=== PATIENT | male | born 1955 | race Caucasian/White ===

== ENCOUNTER 2021-06-05 08:00 | Outpatient (RCR) | payer MEDICARE, SELFPAY ==
[2021-05-22 08:22] VITALS: BP 159/75; PULSE 78; RESP 16; TEMP 36.4; BMI 25.5
--- NOTE | 2021-05-22 09:46 | PCM.WC.HP ---
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 He has been seen by his family doctor and has been placed on clindamycin no cultures were taken and he has been using Bactroban topically since January to keep it clean he said it did get some redness around the area and that frightened him. He is referred Here by his family doctor. Patient states 10 years ago was seen by Dr. 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 He was supposed to have surgery to remove it and they told him he had to have an EKG and he did not have time because of worse work schedule. 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 He has many varicosities and a ropey varicosities in the upper leg and fine broken varicosities in the lower leg. He also on the anterior white of his left leg has this discoloration and indentation almost looks like a scar but he states it is not. [facility] Home Medications amlodipine 10 mg PO DAILY 05/22/21 [History Last Taken Unknown] calcium polycarbophil [FiberCon] 1,250 mg PO BID 05/22/21 [History Last Taken Unknown] fluticasone propionate [Flonase] 1 spray INTRANASAL DAILY 05/22/21 [History Last Taken Unknown] levothyroxine 88 mcg PO DAILY 05/22/21 [History Last Taken Unknown] lovastatin 20 mg PO QPM 05/22/21 [History Last Taken Unknown] Allergy/AdvReac Type Severity Reaction Status Date / Time Penicillins [PCN] Allergy Hives Verified 05/22/21 08:42 SEASONAL Allergy Other Uncoded 05/22/21 08:42 Social History Smoking Status: Never smoker ROS Constitutional Constitutional: Reports systems reviewed and no addt'l complaints, except as documented Eyes Eyes: Reports systems reviewed and no addt'l complaints, except as documented ENT HEENT: Reports systems reviewed and no addt'l complaints, except as documented Cardiovascular Cardiovascular: Reports systems reviewed and no addt'l complaints, except as documented Respiratory/Chest Respiratory/Chest: Reports systems reviewed and no addt'l complaints, except as documented Gastrointestinal Gastrointestinal: Reports systems reviewed and no addt'l complaints, except as documented Genitourinary Genitourinary: Reports systems reviewed and no addt'l complaints, except as documented Musculoskeletal Musculoskeletal: Reports systems reviewed and no addt'l complaints, except as documented Integumentary Integumentary: Reports skin ulcer Neurologic Neurologic: Reports systems reviewed and no addt'l complaints, except as documented Psychiatric Psychiatric: Reports systems reviewed and no addt'l complaints, except as documented Endocrine Endocrinology: Reports systems reviewed and no addt'l complaints, except as documented Hematologic/Lymphatic Hematologic/Lymphatic: Reports systems reviewed and no addt'l complaints, except as documented Allergic/Immunologic Allergic/Immunologic: Reports systems reviewed and no addt'l complaints, except as documented Vital Signs Vital Signs Vital Signs: 05/22/21 08:22 Temperature 97.5 F L Temperature Source Temporal Pulse Rate 78 Respiratory Rate 16 Blood Pressure 159/75 H Blood Pressure Mean 103 Blood Pressure Source Monitor Blood Pressure Position Sitting Blood Pressure Location Left Arm Oxygen Delivery Method Room Air Weight Weight: 168 lb Body Mass Index (BMI) 25.5 Physical Exam Const oriented x3 General Appearance: cooperative Exam Limitations: no limitations Resp normal respiratory effort Effort and Inspection: able to speak in complete sentences Auscultation: clear to auscultation bilaterally Cardio regular rate and regular rhythm Palpation: normal PMI Rate: regular rate Rhythm: regular rhythm GI Auscultation: normoactive bowel sounds Palpation: soft and no hepatosplenomegaly Extremity normal to inspection General Extremity: normal exam except as noted Skin no rashes or lesions noted Skin Narrative: Left lateral ankle venous insufficiency he has a large hole that is getting bigger clean some slough denies any pain at this time. Neuro oriented x3 Psych Appearance: grossly normal Speech: normal speech Thought Content: normal thought content Judgement: judgement good Debridement Note Debridement Note Wound debrided: Left lateral lower ankle venous insufficiency Type of Debridement: Excisional debridement Anesthesia Used: 5% Lidocaine Gel Depth: in the subcutaneous layer Percentage of wound debrided: 100 Instrument Used: 5mm curette Tissue Removed: Slough and fibrin and devitalized tissue Severity: Fat Layer Exposed Amount of bleeding with debridement: Mild Bleeding Controlled with: Compression and gauze Patient tolerated procedure: Patient tolerated procedure well Post-Debridement Measurements and Additional Note: Post-Debridement Measurements/Treatment - Nurse 1 - General Ulcer Assessment Start: 05/22/21 08:17 Freq: Status: Active Protocol: BANDAR Activity Type Activity Date Activity User E-Sign Co-Sign Detail Recorded Client Recorded Date Recorded By Document 05/22/21 08:22 [facility] [id number] 05/22/21 08:37 [facility] 05/22/21 08:22 WC - Today's Visit Information Type of service Follow-up Visit (Physician/BATTERY CHARGER TESTER ) Arrival Mode Ambulatory Transfer Assistance None Patient Identification Verified (Name & Yes ) Patient Requires Transmission-Based No Precautions Height and Weight Height 5 ft 8 in Weight 168 lb Weight in Pounds 168.0 lbs Weight Measurement Method Estimated by Patient Body Mass Index (BMI) 25.5 BMI Classification Overweight BSA - [place] 1.90 Vital Signs Temperature (97.8 F-99.1 F) 97.5 F L Temperature Source Temporal Pulse Rate (60-100) 78 Pulse Location Monitor Respiratory Rate (12-18) 16 Respiratory rate source Observation Oxygen Delivery Method Room Air Blood Pressure (90/60-120/80) 159/75 H Blood Pressure Mean 103 Source Monitor Position Sitting Blood Pressure Location Left Arm History Since Last Visit- (Skip if this is Patient's initial visit) Left Footwear Regular Shoe Right Footwear Regular Shoe Lower Extremity Assessment/ Foot Assessment/ Toe Nail Assessment Right -Posterior Tibial Palpable No -Posterior Tibial Doppler Monophasic -Dorsalis Pedis Palpable Yes -Dorsalis Pedis Doppler Monophasic -Extremity Color Pale -Hair Growth on Legs Yes -Hair Growth on Toes Yes -Temperature of Extremity Warm -Other Deformity No -Prior Foot Ulcer No -Charcot Joint No -Prior Amputation No -Thick Yes -Discolored Yes -Deformed Yes -Improper Length & Hygeine Yes Left -Posterior Tibial Palpable No -Posterior Tibial Doppler Monophasic -Dorsalis Pedis Palpable Yes -Dorsalis Pedis Doppler Monophasic -Extremity Color Pale, Hyperpigmented -Hair Growth on Legs No -Hair Growth on Toes No -Temperature of Extremity Warm -Other Deformity No -Prior Foot Ulcer No -Charcot Joint No -Prior Amputation No -Thick Yes -Discolored Yes -Deformed No -Improper Length & Hygeine No Neuropathy Assessment Feet - Top Side and Bottom <Entered> (a) Communication Assessment Preferred language [place] Scallop Cutter Required No Able to Read Yes Able to Write Yes Communication Tools None Right Hearing Abillity Normal Left Hearing Abillity Normal Visual Assistive Devices Glasses Teaching Assessment Preferences Verbal,Written, Audio/Visual, Demonstration Barriers to Learning None Readiness To Learn Excellent Willingness to Engage in Self Management High Activies Readiness to Engage in Self Management High Activities Anxiety Level Calm Cooperation Cooperative Perception Coherent Interest in Health Problem Asks Questions Education Importance Acknowledges Need Does Patient Smoke tobacco or other No substances Smoking Status Never smoker Is Patient Diabetic No Functional Assessment Recent Decline in Ability to Perform Denies Any Declines Culture/Baptist/Staple Laster Cultural/Baptist Needs that may affect No Treatment Plan Teaching: Wound Center *Welcome to the Wound Center -Person Taught Patient -Teaching Method Discussion -Response to teaching Verbalize understanding Welcome to the Wound Care Center [place] (a) 1 - + WC - Nurse 1 - General Ulcer Measurement Start: 05/22/21 08:17 Freq: Status: Active Protocol: Activity Type Activity Date Activity User E-Sign Co-Sign Detail Recorded Client Recorded Date Recorded By Document 05/22/21 08:22 [facility] [id number] 05/22/21 08:37 [facility] 05/22/21 08:22 Wound Center Nurse 1 #1- L LATERAL ANKLE -Combined with other wound No -Current Size (cm) - Length 1 -Current Size (cm) - Width 0.7 -Current Size (cm) - Depth 0.4 -Total Square Cm 0.7 -Date of Last Picture (Recall this 05/22/21 field) -Photo Taken Yes -Epithelialization None Present -Tunneling No -Undermining/Tunneling No -Circular Undermining No -Exudate Amt Medium -Exudate Type Serosanguineous -Wound Margin Distinct, Outline Attached -Granulation Amt None Present (0 %) -Slough/Fibrin Yes -Necrosis Amt Large (67-100%) -Necrotic Tissue Type Adherent Slough -Texture (Casi-wound Skin Appearance) Assessed, Scarring -Moisture (Casi-wound Skin Appearance) Assessed -Color (Casi-wound Skin Appearance) Assessed -Temperature (Casi-wound Skin No Abnormality Appearance) (Pt Warm) -Tenderness on Palpation (Casi-wound No Skin Appearance) -Ulcer Cleansing Rinsed/ Irrigated with Saline -Foul Odor after Cleansing No -Anesthetic Used 5% Lidocaine Gel Lower Limb Edema Present Yes Right Calf (cm) 37.6 Right Ankle (cm) 22.5 Left Calf (cm) 39 Left Ankle (cm) 23.6 WC - Nurse 2 - General Ulcer CM Notes Start: 05/22/21 08:17 Freq: Status: Active Protocol: Activity Type Activity Date Activity User E-Sign Co-Sign Detail Recorded Client Recorded Date Recorded By Document 05/22/21 08:59 MW [id number] 05/22/21 09:04 MW 05/22/21 08:59 Wound Center Nurse 2 #1- L LATERAL ANKLE -Time 09:01 -Correct Patient Yes -Correct Side, Site, Position Yes -Correct Procedure Yes -Procedure Performed Yes -Type of Procedure Debridement -Clinical Debridement Subcutaneous -Tissue Removed Subcutaneous -Post Debridement (cm) - Length 1.0 -Post Debridement (cm) - Width 1.0 -Post Debridement (cm) - Depth 0.3 -Total Square (Post) (cm) 1.00 -Area of Debridement (cm) - Length 1.0 -Area of Debridement (cm) - Width 1.0 -Total Square (Area) (cm) 1.00 -Tunneling No -Undermining/Tunneling No -Circular Undermining No -Wound/Ulcer Outcome Not Healed -Ulcer Cleansing Rinsed/ Irrigated with Saline -Foul Odor after Cleansing No -Bioengineered Tissue No -Bleeding Controlled with Pressure -Offloading No -Treatment Response Procedure Tolerated Well -Debridement - Subq, 1st 20sq cm Yes Pain Scale: 0-10 Numeric Is Patient Pain Free? Yes WC - Nurse 3 - General Ulcer D/C NN Start: 05/22/21 08:17 Freq: Status: Active Protocol: Activity Type Activity Date Activity User E-Sign Co-Sign Detail Recorded Client Recorded Date Recorded By Document 05/22/21 09:11 ML [id number] 05/22/21 09:12 ML 05/22/21 09:11 Wound Care Nurse 3 #1- L LATERAL ANKLE -Ulcer Cleansing Rinsed/ Irrigated with Saline -Primary Dressing Applied Aquacel Extra -Other Dressing adaptic -Primary Dressing Covered/Secured with Dry Gauze,Dry Gauze & Roll Gauze,Secured with Tape -Aquacel Extra 1 Pain Scale: 0-10 Numeric Is Patient Pain Free? Yes WC - Visit Discharge Discharge Condition Stable Ambulatory Status Ambulatory Medication Reconcilliation completed & No provided to patient/care provider Clinical Summary of Care Provided Yes Assessment/Plan Assessment/Plan (1) Asymptomatic ruptured varicose vein of left lower extremity: CODE(S): I83.92 - Asymptomatic varicose veins of left lower extremity PLAN: Cultures obtained of the ulcer will call with results if positive (2) Venous insufficiency of left leg: CODE(S): I87.2 - Venous insufficiency (chronic) (peripheral) PLAN: Arterial brachial studies to be ordered with Doppler study for venous insufficiency (3) Nonhealing ulcer of left lower extremity: CODE(S): L97.929 - Non-pressure chronic ulcer of unspecified part of left lower leg with unspecified severity QUALIFIERS: Non-pressure ulcer stage: with fat layer exposed Qualified Code(s): L97.922 - Non-pressure chronic ulcer of unspecified part of left lower leg with fat layer exposed PLAN: Wash the left leg with antibacterial soap and apply Aquacel extra to wound base moistened cover with Adaptic gauze and tape Double layer Tubigrip to the left lower leg every day Follow-up in 1 week (4) Peripheral vascular disease of lower extremity with ulceration: CODE(S): I73.9 - Peripheral vascular disease, unspecified; L97.909 - Non-pressure chronic ulcer of unspecified part of unspecified lower leg with unspecified severity PLAN: We will apply for a skin sob to the ulcer
[2021-05-29 08:15] VITALS: BP 133/79; PULSE 75; RESP 20; TEMP 36.3; BMI 25.5
[2021-05-29 08:17] VITALS: BP 133/79; PULSE 75; RESP 18; TEMP 36.3; BMI 25.5
--- NOTE | 2021-05-29 09:52 | PCM.WC.PN ---
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 He has been seen by his family doctor and has been placed on clindamycin no cultures were taken and he has been using Bactroban topically since January to keep it clean he said it did get some redness around the area and that frightened him. He is referred Here by his family doctor. Patient states 10 years ago was seen by Dr. 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 He was supposed to have surgery to remove it and they told him he had to have an EKG and he did not have time because of worse work schedule. 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 He has many varicosities and a ropey varicosities in the upper leg and fine broken varicosities in the lower leg. He also on the anterior white of his left leg has this discoloration and indentation almost looks like a scar but he states it is not. Progress of Wound: Ulcer area is measuring smaller. Still looks punctuated has some slough. Positive for infection start him on Bactrim for his staph infection. Was approved for epi fix will apply next week only because of infection this week. Patient is to continue using the Aquacel extra Objective Data Objective Data Vital Signs: Vital Signs Temp Pulse Resp BP 97.4 F L 75 18 133/79 H 05/29/21 08:17 05/29/21 08:17 05/29/21 08:17 05/29/21 08:17 Oxygen Delivery Method Room Air Weight: 168 lb Body Mass Index (BMI) 25.5 Lab / Micro Data Micro: Microbiology 05/22/21 09:00 Wound Abcess - Ankle Gram Stain - Final 05/22/21 09:00 Wound Abcess - Ankle Wound Culture - Final Staphylococcus epidermidis 05/22/21 09:00 Wound Abcess - Ankle Anaerobic Culture - Final No growth in 5 days. Debridement Note Debridement Note Post-Debridement Measurements and Additional Note: Post-Debridement Measurements/Treatment WC - Nurse 1 - General Ulcer Assessment Start: 05/22/21 08:17 Freq: Status: Active Protocol: WC.LOWEXT Activity Type Activity Date Activity User E-Sign Co-Sign Detail Recorded Client Recorded Date Recorded By Document 05/22/21 08:22 [facility] [id number] 05/22/21 08:37 BM Document 05/29/21 08:15 DL [id number] 05/29/21 08:17 DL Document 05/29/21 08:17 DL [id number] 05/29/21 08:22 DL 05/22/21 05/29/21 05/29/21 08:22 08:15 08:17 WC - Today's Visit Information Type of service Follow-up Visit Follow-up Visit Follow-up Visit (Physician/NEIGHBORHOOD PLANNER (Physician/NEIGHBORHOOD PLANNER (Physician/NEIGHBORHOOD PLANNER ) ) ) Arrival Mode Ambulatory Ambulatory Ambulatory Transfer Assistance None None None Patient Identification Verified (Name & Yes Yes Yes ) Patient Requires Transmission-Based No No No Precautions Height and Weight Height 5 ft 8 in Weight 168 lb Weight in Pounds 168.0 lbs Weight Measurement Method Estimated by Patient Body Mass Index (BMI) 25.5 25.5 25.5 BMI Classification Overweight Overweight Overweight BSA - [place] 1.90 Vital Signs Temperature (97.8 F-99.1 F) 97.5 F L 97.3 F L 97.4 F L Temperature Source Temporal Temporal Temporal Pulse Rate (60-100) 78 75 75 Pulse Location Monitor Monitor Monitor Respiratory Rate (12-18) 16 20 H 18 Respiratory rate source Observation Observation Observation Oxygen Delivery Method Room Air Blood Pressure (90/60-120/80) 159/75 H 133/79 H 133/79 H Blood Pressure Mean (mm Hg) 103 97 97 Source Monitor Monitor Monitor Position Sitting Blood Pressure Location Left Arm Have you changed medications since your No No last visit? Any new allergies or adverse reactions No No Had a fall/change in ADL's that may No No increase risk of falls Signs or symptoms of abuse and/or No No neglect since last visit Have you been in the hospital since your No No last visit? Has dressing in place as prescribed Yes Yes Has compression in place as prescribed Yes No Has offloadiing in place as prescribed N/A Yes Experienced any changes in pain level or No No management History Since Last Visit- (Skip if this is Patient's initial visit) Left Footwear Regular Shoe Right Footwear Regular Shoe Pain Scale: 0-10 Numeric Is Patient Pain Free? Yes Yes Lower Extremity Assessment/ Foot Assessment/ Toe Nail Assessment Right -Posterior Tibial Palpable No -Posterior Tibial Doppler Monophasic -Dorsalis Pedis Palpable Yes -Dorsalis Pedis Doppler Monophasic -Extremity Color Pale -Hair Growth on Legs Yes -Hair Growth on Toes Yes -Temperature of Extremity Warm -Other Deformity No -Prior Foot Ulcer No -Charcot Joint No -Prior Amputation No -Thick Yes -Discolored Yes -Deformed Yes -Improper Length & Hygeine Yes Left -Posterior Tibial Palpable No -Posterior Tibial Doppler Monophasic -Dorsalis Pedis Palpable Yes -Dorsalis Pedis Doppler Monophasic -Extremity Color Pale, Hyperpigmented -Hair Growth on Legs No -Hair Growth on Toes No -Temperature of Extremity Warm -Other Deformity No -Prior Foot Ulcer No -Charcot Joint No -Prior Amputation No -Thick Yes -Discolored Yes -Deformed No -Improper Length & Hygeine No Neuropathy Assessment Feet - Top Side and Bottom <Entered> (a) Communication Assessment Preferred language [place] 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 Able to Read Yes Able to Write Yes Communication Tools None Right Hearing Abillity Normal Left Hearing Abillity Normal Visual Assistive Devices Glasses Teaching Assessment Preferences Verbal,Written, Audio/Visual, Demonstration Barriers to Learning None Readiness To Learn Excellent Willingness to Engage in Self Management High Activies Readiness to Engage in Self Management High Activities Anxiety Level Calm Cooperation Cooperative Perception Coherent Interest in Health Problem Asks Questions Education Importance Acknowledges Need Does Patient Smoke tobacco or other No substances Smoking Status Never smoker Is Patient Diabetic No Functional Assessment Recent Decline in Ability to Perform Denies Any Declines Culture/Mandaen/Transport Technician Cultural/Mandaen Needs that may affect No Treatment Plan Teaching: Wound Center *Welcome to the Wound Center -Person Taught Patient -Teaching Method Discussion -Response to teaching Verbalize understanding Welcome to the Wound Care Center Mexican (a) 1 - + WC - Nurse 1 - General Ulcer Measurement Start: 05/22/21 08:17 Freq: Status: Active Protocol: Activity Type Activity Date Activity User E-Sign Co-Sign Detail Recorded Client Recorded Date Recorded By Document 05/22/21 08:22 BMF [id number] 05/22/21 08:37 BMF Document 05/29/21 08:17 DL [id number] 05/29/21 08:22 DL Edit Result 05/29/21 08:17 DL (1) [id number] 05/29/21 08:24 DL (1) Left Calf (cm) => 38 Left Ankle (cm) => 22 05/22/21 05/29/21 08:22 08:17 Wound Center Nurse 1 #1- L LATERAL ANKLE -Combined with other wound No -Current Size (cm) - Length 1 0.9 -Current Size (cm) - Width 0.7 0.6 -Current Size (cm) - Depth 0.4 0.4 -Total Square Cm 0.7 0.54 -Date of Last Picture (Recall this 05/22/21 field) -Photo Taken Yes No -Epithelialization None Present -Tunneling No -Undermining/Tunneling No -Undermining/Tunneling Starts (O'clock 10 ) -Undermining/Tunneling Ends (O'clock) 1 -Maximum Distance (cm) 0.2 -Circular Undermining No -Exudate Amt Medium Medium -Exudate Type Serosanguineous Serosanguineous -Wound Margin Distinct, Distinct, Outline Outline Attached Attached -Granulation Amt None Present (0 None Present (0 %) %) -Slough/Fibrin Yes -Necrosis Amt Large (67-100%) Large (67-100%) -Necrotic Tissue Type Adherent Slough Adherent Slough -Structure Exposed N/A -Texture (Casi-wound Skin Appearance) Assessed, Localized Edema Scarring -Moisture (Casi-wound Skin Appearance) Assessed No Abnormality -Color (Casi-wound Skin Appearance) Assessed Erythema -Temperature (Casi-wound Skin No Abnormality No Abnormality Appearance) (Pt Warm) (Pt Warm) -Tenderness on Palpation (Casi-wound No No Skin Appearance) -Ulcer Cleansing Rinsed/ Soap and Water Irrigated with Saline -Foul Odor after Cleansing No -Anesthetic Used 5% Lidocaine 4% Lidocaine Gel Solution,5% Lidocaine Gel Lower Limb Edema Present Yes Right Calf (cm) 37.6 Right Ankle (cm) 22.5 Left Calf (cm) 39 38 Left Ankle (cm) 23.6 22 WC - Nurse 2 - General Ulcer CM Notes Start: 05/22/21 08:17 Freq: Status: Active Protocol: Activity Type Activity Date Activity User E-Sign Co-Sign Detail Recorded Client Recorded Date Recorded By Document 05/22/21 08:59 MW [id number] 05/22/21 09:04 MW Document 05/29/21 08:36 MW [id number] 05/29/21 08:37 MW 05/22/21 05/29/21 08:59 08:36 Wound Center Nurse 2 #1- L LATERAL ANKLE -Time 09:01 08:36 -Correct Patient Yes Yes -Correct Side, Site, Position Yes Yes -Correct Procedure Yes Yes -Procedure Performed Yes Yes -Type of Procedure Debridement Debridement -Clinical Debridement Subcutaneous Subcutaneous -Tissue Removed Subcutaneous Subcutaneous -Post Debridement (cm) - Length 1.0 1.0 -Post Debridement (cm) - Width 1.0 0.8 -Post Debridement (cm) - Depth 0.3 0.2 -Total Square (Post) (cm) 1.00 0.80 -Area of Debridement (cm) - Length 1.0 1.0 -Area of Debridement (cm) - Width 1.0 0.8 -Total Square (Area) (cm) 1.00 0.80 -Tunneling No No -Undermining/Tunneling No No -Circular Undermining No No -Wound/Ulcer Outcome Not Healed Not Healed -Ulcer Cleansing Rinsed/ Rinsed/ Irrigated with Irrigated with Saline Saline -Foul Odor after Cleansing No No -Bioengineered Tissue No No -Bleeding Controlled with Pressure Pressure -Offloading No No -Treatment Response Procedure Tolerated Well -Debridement - Subq, 1st 20sq cm Yes Yes Pain Scale: 0-10 Numeric Is Patient Pain Free? Yes Yes WC - Nurse 3 - General Ulcer D/C NN Start: 05/22/21 08:17 Freq: Status: Active Protocol: Activity Type Activity Date Activity User E-Sign Co-Sign Detail Recorded Client Recorded Date Recorded By Document 05/22/21 09:11 ML [id number] 05/22/21 09:12 ML Document 05/29/21 08:46 RB [id number] 05/29/21 08:47 RB 05/22/21 05/29/21 09:11 08:46 Wound Care Nurse 3 #1- L LATERAL ANKLE -Ulcer Cleansing Rinsed/ Irrigated with Saline -Primary Dressing Applied Aquacel Extra Aquacel Extra, NonAdherent Contact Layer -Other Dressing adaptic -Primary Dressing Covered/Secured with Dry Gauze,Dry Dry Gauze,Dry Gauze & Roll Gauze & Roll Gauze,Secured Gauze,Secured with Tape with Tape -Aquacel Extra 1 1 Left -Other double layer tubigrip Treatment Response Procedure Tolerated Well Pain Scale: 0-10 Numeric Is Patient Pain Free? Yes Yes WC - Visit Discharge Discharge Condition Stable Stable Ambulatory Status Ambulatory Ambulatory Transportation Private Auto Medication Reconcilliation completed & No No provided to patient/care provider Clinical Summary of Care Provided Yes Yes Assessment/Plan Assessment/Plan (1) Asymptomatic ruptured varicose vein of left lower extremity: CODE(S): I83.92 - Asymptomatic varicose veins of left lower extremity (2) Venous insufficiency of left leg: CODE(S): I87.2 - Venous insufficiency (chronic) (peripheral) PLAN: DR Childers vascular surgeon appointment September (3) Nonhealing ulcer of left lower extremity: CODE(S): L97.929 - Non-pressure chronic ulcer of unspecified part of left lower leg with unspecified severity QUALIFIERS: Non-pressure ulcer stage: with fat layer exposed Qualified Code(s): L97.922 - Non-pressure chronic ulcer of unspecified part of left lower leg with fat layer exposed PLAN: Wound is resolved patient will be discharged from the wound center follow-up as needed (4) Peripheral vascular disease of lower extremity with ulceration: CODE(S): I73.9 - Peripheral vascular disease, unspecified; L97.909 - Non-pressure chronic ulcer of unspecified part of unspecified lower leg with unspecified severity
--- NOTE | 2021-05-29 10:47 | PCM.WC.PN ---
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 He has been seen by his family doctor and has been placed on clindamycin no cultures were taken and he has been using Bactroban topically since January to keep it clean he said it did get some redness around the area and that frightened him. He is referred Here by his family doctor. Patient states 10 years ago was seen by Dr. 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 He was supposed to have surgery to remove it and they told him he had to have an EKG and he did not have time because of worse work schedule. 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 He has many varicosities and a ropey varicosities in the upper leg and fine broken varicosities in the lower leg. He also on the anterior white of his left leg has this discoloration and indentation almost looks like a scar but he states it is not. Progress of Wound: Ulcer area is measuring smaller. Still looks punctuated has some slough. Positive for infection start him on Bactrim for his staph infection. Was approved for epi fix will apply next week only because of infection this week. Patient is to continue using the Aquacel extra Subjective Subjective Patient appears pleased with results but still very impatient Objective Data Objective Data Starting developed new cells in the base of the wound and still on Bactrim and has some slough in the base we can hold off on the epi fix till next week. Vital Signs: Vital Signs Temp Pulse Resp BP 97.4 F L 75 18 133/79 H 05/29/21 08:17 05/29/21 08:17 05/29/21 08:17 05/29/21 08:17 Oxygen Delivery Method Room Air Weight: 168 lb Body Mass Index (BMI) 25.5 Lab / Micro Data Attestation: I reviewed the patient's lab results. Micro: Microbiology 05/22/21 09:00 Wound Abcess - Ankle Gram Stain - Final 05/22/21 09:00 Wound Abcess - Ankle Wound Culture - Final Staphylococcus epidermidis 05/22/21 09:00 Wound Abcess - Ankle Anaerobic Culture - Final No growth in 5 days. Physical Exam Const oriented x3 General Appearance: cooperative Exam Limitations: no limitations Resp normal respiratory effort Effort and Inspection: able to speak in complete sentences Auscultation: clear to auscultation bilaterally Cardio regular rate and regular rhythm Palpation: normal PMI Rate: regular rate Rhythm: regular rhythm GI Auscultation: normoactive bowel sounds Palpation: soft and no hepatosplenomegaly Extremity normal to inspection General Extremity: normal exam except as noted Skin no rashes or lesions noted Skin Narrative: Left lateral ankle venous insufficiency he has a large hole that is getting bigger clean some slough denies any pain at this time. Neuro oriented x3 Psych Appearance: grossly normal Speech: normal speech Thought Content: normal thought content Judgement: judgement good Debridement Note Debridement Note Wound debrided: Left lateral ankle peripheral vascular ulcer Type of Debridement: Excisional debridement Anesthesia Used: 5% Lidocaine Gel Depth: Down to and including healthy tissue Percentage of wound debrided: 100 Instrument Used: 3mm curette Tissue Removed: Slough and fibrin Severity: Fat Layer Exposed Amount of bleeding with debridement: Mild Bleeding Controlled with: Pressure and Compression and gauze Patient tolerated procedure: Patient tolerated procedure well Post-Debridement Measurements and Additional Note: Post-Debridement Measurements/Treatment - Nurse 1 - General Ulcer Assessment Start: 05/22/21 08:17 Freq: Status: Active Protocol: [email or web address] Activity Type Activity Date Activity User E-Sign Co-Sign Detail Recorded Client Recorded Date Recorded By Document 05/22/21 08:22 [facility] [id number] 05/22/21 08:37 [facility] Document 05/29/21 08:15 DL [id number] 05/29/21 08:17 DL Document 05/29/21 08:17 DL [id number] 05/29/21 08:22 DL 05/22/21 05/29/21 05/29/21 08:22 08:15 08:17 - Today's Visit Information Type of service Follow-up Visit Follow-up Visit Follow-up Visit (Physician/LINE TENDER (Physician/LINE TENDER (Physician/LINE TENDER ) ) ) Arrival Mode Ambulatory Ambulatory Ambulatory Transfer Assistance None None None Patient Identification Verified (Name & Yes Yes Yes ) Patient Requires Transmission-Based No No No Precautions Height and Weight Height 5 ft 8 in Weight 168 lb Weight in Pounds 168.0 lbs Weight Measurement Method Estimated by Patient Body Mass Index (BMI) 25.5 25.5 25.5 BMI Classification Overweight Overweight Overweight BSA - [place] 1.90 Vital Signs Temperature (97.8 F-99.1 F) 97.5 F L 97.3 F L 97.4 F L Temperature Source Temporal Temporal Temporal Pulse Rate (60-100) 78 75 75 Pulse Location Monitor Monitor Monitor Respiratory Rate (12-18) 16 20 H 18 Respiratory rate source Observation Observation Observation Oxygen Delivery Method Room Air Blood Pressure (90/60-120/80) 159/75 H 133/79 H 133/79 H Blood Pressure Mean (mm Hg) 103 97 97 Source Monitor Monitor Monitor Position Sitting Blood Pressure Location Left Arm Have you changed medications since your No No last visit? Any new allergies or adverse reactions No No Had a fall/change in ADL's that may No No increase risk of falls Signs or symptoms of abuse and/or No No neglect since last visit Have you been in the hospital since your No No last visit? Has dressing in place as prescribed Yes Yes Has compression in place as prescribed Yes No Has offloadiing in place as prescribed N/A Yes Experienced any changes in pain level or No No management History Since Last Visit- (Skip if this is Patient's initial visit) Left Footwear Regular Shoe Right Footwear Regular Shoe Pain Scale: 0-10 Numeric Is Patient Pain Free? Yes Yes Lower Extremity Assessment/ Foot Assessment/ Toe Nail Assessment Right -Posterior Tibial Palpable No -Posterior Tibial Doppler Monophasic -Dorsalis Pedis Palpable Yes -Dorsalis Pedis Doppler Monophasic -Extremity Color Pale -Hair Growth on Legs Yes -Hair Growth on Toes Yes -Temperature of Extremity Warm -Other Deformity No -Prior Foot Ulcer No -Charcot Joint No -Prior Amputation No -Thick Yes -Discolored Yes -Deformed Yes -Improper Length & Hygeine Yes Left -Posterior Tibial Palpable No -Posterior Tibial Doppler Monophasic -Dorsalis Pedis Palpable Yes -Dorsalis Pedis Doppler Monophasic -Extremity Color Pale, Hyperpigmented -Hair Growth on Legs No -Hair Growth on Toes No -Temperature of Extremity Warm -Other Deformity No -Prior Foot Ulcer No -Charcot Joint No -Prior Amputation No -Thick Yes -Discolored Yes -Deformed No -Improper Length & Hygeine No Neuropathy Assessment Feet - Top Side and Bottom <Entered> (a) Communication Assessment Preferred language [place]an Parquet Floor Layer'S Helper Required No Able to Read Yes Able to Write Yes Communication Tools None Right Hearing Abillity Normal Left Hearing Abillity Normal Visual Assistive Devices Glasses Teaching Assessment Preferences Verbal,Written, Audio/Visual, Demonstration Barriers to Learning None Readiness To Learn Excellent Willingness to Engage in Self Management High Activies Readiness to Engage in Self Management High Activities Anxiety Level Calm Cooperation Cooperative Perception Coherent Interest in Health Problem Asks Questions Education Importance Acknowledges Need Does Patient Smoke tobacco or other No substances Smoking Status Never smoker Is Patient Diabetic No Functional Assessment Recent Decline in Ability to Perform Denies Any Declines 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 Cultural/Yarsani Needs that may affect No Treatment Plan Teaching: Wound Center *Welcome to the Wound Center -Person Taught Patient -Teaching Method Discussion -Response to teaching Verbalize understanding Welcome to the Wound Care Center [place]an (a) 1 - + WC - Nurse 1 - General Ulcer Measurement Start: 05/22/21 08:17 Freq: Status: Active Protocol: Activity Type Activity Date Activity User E-Sign Co-Sign Detail Recorded Client Recorded Date Recorded By Document 05/22/21 08:22 [facility] [id number] 05/22/21 08:37 [facility] Document 05/29/21 08:17 DL [id number] 05/29/21 08:22 DL Edit Result 05/29/21 08:17 DL (1) [id number] 05/29/21 08:24 DL (1) Left Calf (cm) => 38 Left Ankle (cm) => 22 05/22/21 05/29/21 08:22 08:17 Wound Center Nurse 1 #1- L LATERAL ANKLE -Combined with other wound No -Current Size (cm) - Length 1 0.9 -Current Size (cm) - Width 0.7 0.6 -Current Size (cm) - Depth 0.4 0.4 -Total Square Cm 0.7 0.54 -Date of Last Picture (Recall this 05/22/21 field) -Photo Taken Yes No -Epithelialization None Present -Tunneling No -Undermining/Tunneling No -Undermining/Tunneling Starts (O'clock 10 ) -Undermining/Tunneling Ends (O'clock) 1 -Maximum Distance (cm) 0.2 -Circular Undermining No -Exudate Amt Medium Medium -Exudate Type Serosanguineous Serosanguineous -Wound Margin Distinct, Distinct, Outline Outline Attached Attached -Granulation Amt None Present (0 None Present (0 %) %) -Slough/Fibrin Yes -Necrosis Amt Large (67-100%) Large (67-100%) -Necrotic Tissue Type Adherent Slough Adherent Slough -Structure Exposed N/A -Texture (Casi-wound Skin Appearance) Assessed, Localized Edema Scarring -Moisture (Casi-wound Skin Appearance) Assessed No Abnormality -Color (Casi-wound Skin Appearance) Assessed Erythema -Temperature (Casi-wound Skin No Abnormality No Abnormality Appearance) (Pt Warm) (Pt Warm) -Tenderness on Palpation (Casi-wound No No Skin Appearance) -Ulcer Cleansing Rinsed/ Soap and Water Irrigated with Saline -Foul Odor after Cleansing No -Anesthetic Used 5% Lidocaine 4% Lidocaine Gel Solution,5% Lidocaine Gel Lower Limb Edema Present Yes Right Calf (cm) 37.6 Right Ankle (cm) 22.5 Left Calf (cm) 39 38 Left Ankle (cm) 23.6 22 WC - Nurse 2 - General Ulcer CM Notes Start: 05/22/21 08:17 Freq: Status: Active Protocol: Activity Type Activity Date Activity User E-Sign Co-Sign Detail Recorded Client Recorded Date Recorded By Document 05/22/21 08:59 MW [id number] 05/22/21 09:04 MW Document 05/29/21 08:36 MW [id number] 05/29/21 08:37 MW 05/22/21 05/29/21 08:59 08:36 Wound Center Nurse 2 #1- L LATERAL ANKLE -Time 09:01 08:36 -Correct Patient Yes Yes -Correct Side, Site, Position Yes Yes -Correct Procedure Yes Yes -Procedure Performed Yes Yes -Type of Procedure Debridement Debridement -Clinical Debridement Subcutaneous Subcutaneous -Tissue Removed Subcutaneous Subcutaneous -Post Debridement (cm) - Length 1.0 1.0 -Post Debridement (cm) - Width 1.0 0.8 -Post Debridement (cm) - Depth 0.3 0.2 -Total Square (Post) (cm) 1.00 0.80 -Area of Debridement (cm) - Length 1.0 1.0 -Area of Debridement (cm) - Width 1.0 0.8 -Total Square (Area) (cm) 1.00 0.80 -Tunneling No No -Undermining/Tunneling No No -Circular Undermining No No -Wound/Ulcer Outcome Not Healed Not Healed -Ulcer Cleansing Rinsed/ Rinsed/ Irrigated with Irrigated with Saline Saline -Foul Odor after Cleansing No No -Bioengineered Tissue No No -Bleeding Controlled with Pressure Pressure -Offloading No No -Treatment Response Procedure Tolerated Well -Debridement - Subq, 1st 20sq cm Yes Yes Pain Scale: 0-10 Numeric Is Patient Pain Free? Yes Yes - Nurse 3 - General Ulcer D/C NN Start: 05/22/21 08:17 Freq: Status: Active Protocol: Activity Type Activity Date Activity User E-Sign Co-Sign Detail Recorded Client Recorded Date Recorded By Document 05/22/21 09:11 ML [id number] 05/22/21 09:12 ML Document 05/29/21 08:46 RB [id number] 05/29/21 08:47 RB 05/22/21 05/29/21 09:11 08:46 Wound Care Nurse 3 #1- L LATERAL ANKLE -Ulcer Cleansing Rinsed/ Irrigated with Saline -Primary Dressing Applied Aquacel Extra Aquacel Extra, NonAdherent Contact Layer -Other Dressing adaptic -Primary Dressing Covered/Secured with Dry Gauze,Dry Dry Gauze,Dry Gauze & Roll Gauze & Roll Gauze,Secured Gauze,Secured with Tape with Tape -Aquacel Extra 1 1 Left -Other double layer tubigrip Treatment Response Procedure Tolerated Well Pain Scale: 0-10 Numeric Is Patient Pain Free? Yes Yes - Visit Discharge Discharge Condition Stable Stable Ambulatory Status Ambulatory Ambulatory Transportation Private Auto Medication Reconcilliation completed & No No provided to patient/care provider Clinical Summary of Care Provided Yes Yes Assessment/Plan Assessment/Plan (1) Asymptomatic ruptured varicose vein of left lower extremity: CODE(S): I83.92 - Asymptomatic varicose veins of left lower extremity PLAN: Cultures obtained of the ulcer staph growing in ulcer started on Bactrim DS 1 p.o. twice daily for 14 days (2) Venous insufficiency of left leg: CODE(S): I87.2 - Venous insufficiency (chronic) (peripheral) PLAN: Arterial brachial studies to be ordered with Doppler study for venous insufficiency still waiting to be scheduled (3) Nonhealing ulcer of left lower extremity: CODE(S): L97.929 - Non-pressure chronic ulcer of unspecified part of left lower leg with unspecified severity QUALIFIERS: Non-pressure ulcer stage: with fat layer exposed Qualified Code(s): L97.922 - Non-pressure chronic ulcer of unspecified part of left lower leg with fat layer exposed PLAN: Wash the left leg with antibacterial soap and apply Aquacel extra to wound base moistened cover with Adaptic gauze and tape Double layer Tubigrip to the left lower leg every day Follow-up in 1 week (4) Peripheral vascular disease of lower extremity with ulceration: CODE(S): I73.9 - Peripheral vascular disease, unspecified; L97.909 - Non-pressure chronic ulcer of unspecified part of unspecified lower leg with unspecified severity PLAN: Approved for skin substitution to the ulcer will wait till infection is cleared.
[2021-06-05 08:06] VITALS: BP 135/83; PULSE 82; RESP 16; BMI 25.5
--- NOTE | 2021-06-05 09:06 | PCM.WC.PN ---
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 He has been seen by his family doctor and has been placed on clindamycin no cultures were taken and he has been using Bactroban topically since January to keep it clean he said it did get some redness around the area and that frightened him. He is referred Here by his family doctor. Patient states 10 years ago was seen by Dr. 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 He was supposed to have surgery to remove it and they told him he had to have an EKG and he did not have time because of worse work schedule. 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 He has many varicosities and a ropey varicosities in the upper leg and fine broken varicosities in the lower leg. He also on the anterior white of his left leg has this discoloration and indentation almost looks like a scar but he states it is not. Progress of Wound: Ulcer area is measuring smaller. Still looks punctuated has some slough. Positive for infection start him on Bactrim for his staph infection. Was approved for epi fix will apply next week only because of infection this week. Patient is changed to promogran Patient did receive call from vascular but has not gotten his studies done. Will be off for a week so I suggested he get it done in the next 2 weeks. Subjective Subjective Patient has no complaints and denies any pain Objective Data Objective Data Small amount of new skin cell growth and base of wound still has a lot of fat layer showing. Will start on Promogran this week for the next 2 weeks and then start him on epi fix is to fill in. Patient to get the ultrasound and arterial brachial studies done as soon as he can. Vital Signs: Vital Signs Temp Pulse Resp BP 97.4 F L 82 16 135/83 H 05/29/21 08:17 06/05/21 08:06 06/05/21 08:06 06/05/21 08:06 Oxygen Delivery Method Room Air Weight: 168 lb Body Mass Index (BMI) 25.5 Lab / Micro Data Attestation: I reviewed the patient's lab results. Micro: Microbiology 05/22/21 09:00 Wound Abcess - Ankle Gram Stain - Final 05/22/21 09:00 Wound Abcess - Ankle Wound Culture - Final Staphylococcus epidermidis 05/22/21 09:00 Wound Abcess - Ankle Anaerobic Culture - Final No growth in 5 days. Physical Exam Const oriented x3 General Appearance: cooperative Exam Limitations: no limitations Resp normal respiratory effort Effort and Inspection: able to speak in complete sentences Auscultation: clear to auscultation bilaterally Cardio regular rate and regular rhythm Palpation: normal PMI Rate: regular rate Rhythm: regular rhythm GI Auscultation: normoactive bowel sounds Palpation: soft and no hepatosplenomegaly Extremity normal to inspection General Extremity: normal exam except as noted Skin no rashes or lesions noted Skin Narrative: Left lateral ankle venous insufficiency he has a large hole that is getting bigger clean some slough denies any pain at this time. Neuro oriented x3 Psych Appearance: grossly normal Speech: normal speech Thought Content: normal thought content Judgement: judgement good Debridement Note Debridement Note Wound debrided: Left lateral ankle ulcer Laterality: Left Type of Debridement: Excisional debridement Anesthesia Used: 5% Lidocaine Gel Depth: Down to and including healthy tissue Percentage of wound debrided: 100 Instrument Used: 3mm curette Tissue Removed: Fibrin Severity: Fat Layer Exposed Amount of bleeding with debridement: Mild Bleeding Controlled with: Pressure Post-Debridement Measurements and Additional Note: Post-Debridement Measurements/Treatment WC - Nurse 1 - General Ulcer Assessment Start: 05/22/21 08:17 Freq: Status: Active Protocol: BANDAR Activity Type Activity Date Activity User E-Sign Co-Sign Detail Recorded Client Recorded Date Recorded By Document 05/22/21 08:22 [facility] [id number] 05/22/21 08:37 BMF Document 05/29/21 08:15 DL [id number] 05/29/21 08:17 DL Document 05/29/21 08:17 DL [id number] 05/29/21 08:22 DL Document 06/05/21 08:06 JF [id number] 06/05/21 08:11 JF 12/15/21 12/22/21 12/22/21 08:22 08:15 08:17 WC - Today's Visit Information Type of service Follow-up Visit Follow-up Visit Follow-up Visit (Physician/VAUDEVILLE ACTOR (Physician/VAUDEVILLE ACTOR (Physician/VAUDEVILLE ACTOR ) ) ) Arrival Mode Ambulatory Ambulatory Ambulatory Transfer Assistance None None None Patient Identification Verified (Name & Yes Yes Yes ) Patient Requires Transmission-Based No No No Precautions Height and Weight Height 5 ft 8 in Weight 168 lb Weight in Pounds 168.0 lbs Weight Measurement Method Estimated by Patient Body Mass Index (BMI) 25.5 25.5 25.5 BMI Classification Overweight Overweight Overweight BSA - [place] 1.90 Vital Signs Temperature (97.8 F-99.1 F) 97.5 F L 97.3 F L 97.4 F L Temperature Source Temporal Temporal Temporal Pulse Rate (60-100) 78 75 75 Pulse Location Monitor Monitor Monitor Respiratory Rate (12-18) 16 20 H 18 Respiratory rate source Observation Observation Observation Oxygen Delivery Method Room Air Blood Pressure (90/60-120/80) 159/75 H 133/79 H 133/79 H Blood Pressure Mean (mm Hg) 103 97 97 Source Monitor Monitor Monitor Position Sitting Blood Pressure Location Left Arm Have you changed medications since your No No last visit? Any new allergies or adverse reactions No No Had a fall/change in ADL's that may No No increase risk of falls Signs or symptoms of abuse and/or No No neglect since last visit Have you been in the hospital since your No No last visit? Has dressing in place as prescribed Yes Yes Has compression in place as prescribed Yes No Has offloadiing in place as prescribed N/A Yes Experienced any changes in pain level or No No management History Since Last Visit- (Skip if this is Patient's initial visit) Left Footwear Regular Shoe Right Footwear Regular Shoe Pain Scale: 0-10 Numeric Is Patient Pain Free? Yes Yes Lower Extremity Assessment/ Foot Assessment/ Toe Nail Assessment Right -Posterior Tibial Palpable No -Posterior Tibial Doppler Monophasic -Dorsalis Pedis Palpable Yes -Dorsalis Pedis Doppler Monophasic -Extremity Color Pale -Hair Growth on Legs Yes -Hair Growth on Toes Yes -Temperature of Extremity Warm -Other Deformity No -Prior Foot Ulcer No -Charcot Joint No -Prior Amputation No -Thick Yes -Discolored Yes -Deformed Yes -Improper Length & Hygeine Yes Left -Posterior Tibial Palpable No -Posterior Tibial Doppler Monophasic -Dorsalis Pedis Palpable Yes -Dorsalis Pedis Doppler Monophasic -Extremity Color Pale, Hyperpigmented -Hair Growth on Legs No -Hair Growth on Toes No -Temperature of Extremity Warm -Other Deformity No -Prior Foot Ulcer No -Charcot Joint No -Prior Amputation No -Thick Yes -Discolored Yes -Deformed No -Improper Length & Hygeine No Neuropathy Assessment Feet - Top Side and Bottom <Entered> (a) Communication Assessment Preferred language Wolof Prevention Specialist Required No Able to Read Yes Able to Write Yes Communication Tools None Right Hearing Abillity Normal Left Hearing Abillity Normal Visual Assistive Devices Glasses Teaching Assessment Preferences Verbal,Written, Audio/Visual, Demonstration Barriers to Learning None Readiness To Learn Excellent Willingness to Engage in Self Management High Activies Readiness to Engage in Self Management High Activities Anxiety Level Calm Cooperation Cooperative Perception Coherent Interest in Health Problem Asks Questions Education Importance Acknowledges Need Does Patient Smoke tobacco or other No substances Smoking Status Never smoker Is Patient Diabetic No Functional Assessment Recent Decline in Ability to Perform Denies Any Declines Culture/Religion/Interactive Media Marketing Strategist Cultural/Religion Needs that may affect No Treatment Plan Teaching: Wound Center *Welcome to the Wound Center -Person Taught Patient -Teaching Method Discussion -Response to teaching Verbalize understanding Welcome to the Wound Care Center Wolof 06/05/21 08:06 WC - Today's Visit Information Type of service Follow-up Visit (Physician/VAUDEVILLE ACTOR ) Arrival Mode Ambulatory Transfer Assistance Patient Identification Verified (Name & No ) Patient Requires Transmission-Based No Precautions Height and Weight Height Weight Weight in Pounds Weight Measurement Method Body Mass Index (BMI) 25.5 BMI Classification Overweight [facility] [place] Vital Signs Temperature (97.8 F-99.1 F) Temperature Source Pulse Rate (60-100) 82 Pulse Location Monitor Respiratory Rate (12-18) 16 Respiratory rate source Observation Oxygen Delivery Method Blood Pressure (90/60-120/80) 135/83 H Blood Pressure Mean (mm Hg) 100 Source Monitor Position Sitting Blood Pressure Location Left Arm Have you changed medications since your No last visit? Any new allergies or adverse reactions No Had a fall/change in ADL's that may increase risk of falls Signs or symptoms of abuse and/or No neglect since last visit Have you been in the hospital since your No last visit? Has dressing in place as prescribed Yes Has compression in place as prescribed Yes Has offloadiing in place as prescribed N/A Experienced any changes in pain level or No management History Since Last Visit- (Skip if this is Patient's initial visit) Left Footwear Regular Shoe Right Footwear Regular Shoe Pain Scale: 0-10 Numeric Is Patient Pain Free? Yes Lower Extremity Assessment/ Foot Assessment/ Toe Nail Assessment Right -Posterior Tibial Palpable -Posterior Tibial Doppler -Dorsalis Pedis Palpable -Dorsalis Pedis Doppler -Extremity Color -Hair Growth on Legs -Hair Growth on Toes -Temperature of Extremity -Other Deformity -Prior Foot Ulcer -Charcot Joint -Prior Amputation -Thick -Discolored -Deformed -Improper Length & Hygeine Left -Posterior Tibial Palpable -Posterior Tibial Doppler -Dorsalis Pedis Palpable -Dorsalis Pedis Doppler -Extremity Color -Hair Growth on Legs -Hair Growth on Toes -Temperature of Extremity -Other Deformity -Prior Foot Ulcer -Charcot Joint -Prior Amputation -Thick -Discolored -Deformed -Improper Length & Hygeine Neuropathy Assessment Feet - Top Side and Bottom Communication Assessment Preferred high school foreign language teacher Required Able to Read Able to Write Communication Tools Right Hearing Abillity Left Hearing Abillity Visual Assistive Devices Teaching Assessment Preferences Barriers to Learning Readiness To Learn Willingness to Engage in Self Management Activies Readiness to Engage in Self Management Activities Anxiety Level Cooperation Perception Interest in Health Problem Education Importance Does Patient Smoke tobacco or other substances Smoking Status Is Patient Diabetic Functional Assessment Recent Decline in Ability to Perform Culture/Religion/Interactive Media Marketing Strategist Cultural/Religion Needs that may affect Treatment Plan Teaching: Wound Center *Welcome to the Wound Center -Person Taught -Teaching Method -Response to teaching Welcome to the Wound Care Center (a) 1 - + WC - Nurse 1 - General Ulcer Measurement Start: 05/22/21 08:17 Freq: Status: Active Protocol: Activity Type Activity Date Activity User E-Sign Co-Sign Detail Recorded Client Recorded Date Recorded By Document 05/22/21 08:22 [facility] [id number] 05/22/21 08:37 BMF Document 05/29/21 08:17 DL [id number] 05/29/21 08:22 DL Edit Result 05/29/21 08:17 DL (1) [id number] 05/29/21 08:24 DL Document 06/05/21 08:06 [id number] 06/05/21 08:11 JF (1) Left Calf (cm) => 38 Left Ankle (cm) => 22 05/22/21 05/29/21 06/05/21 08:22 08:17 08:06 Wound Center Nurse 1 #1- L LATERAL ANKLE -Combined with other wound No No -Current Size (cm) - Length 1 0.9 0.9 -Current Size (cm) - Width 0.7 0.6 0.9 -Current Size (cm) - Depth 0.4 0.4 0.5 -Total Square Cm 0.7 0.54 0.81 -Date of Last Picture (Recall this 05/22/21 field) -Photo Taken Yes No No -Epithelialization None Present Small 1-33% -Tunneling No No -Undermining/Tunneling No No -Undermining/Tunneling Starts (O'clock 10 ) -Undermining/Tunneling Ends (O'clock) 1 -Maximum Distance (cm) 0.2 -Circular Undermining No No -Exudate Amt Medium Medium Small -Exudate Type Serosanguineous Serosanguineous Serosanguineous -Wound Margin Distinct, Distinct, Flat & Intact Outline Outline Attached Attached -Granulation Amt None Present (0 None Present (0 Medium (34-66%) %) %) -Granulation Quality Red -Slough/Fibrin Yes Yes -Necrosis Amt Large (67-100%) Large (67-100%) Medium (34-66%) -Necrotic Tissue Type Adherent Slough Adherent Slough Adherent Slough -Structure Exposed N/A N/A -Texture (Casi-wound Skin Appearance) Assessed, Localized Edema Assessed, Scarring Localized Edema -Moisture (Casi-wound Skin Appearance) Assessed No Abnormality Assessed,Dry/ Scaly -Color (Casi-wound Skin Appearance) Assessed Erythema Assessed, Hemosiderin Staining -Temperature (Casi-wound Skin No Abnormality No Abnormality No Abnormality Appearance) (Pt Warm) (Pt Warm) (Pt Warm) -Tenderness on Palpation (Casi-wound No No No Skin Appearance) -Ulcer Cleansing Rinsed/ Soap and Water Not Cleansed Irrigated with Saline -Foul Odor after Cleansing No -Anesthetic Used 5% Lidocaine 4% Lidocaine 5% Lidocaine Gel Solution,5% Gel Lidocaine Gel Lower Limb Edema Present Yes Yes Right Calf (cm) 37.6 Right Ankle (cm) 22.5 Left Calf (cm) 39 38 38 Left Ankle (cm) 23.6 22 23 - Nurse 2 - General Ulcer CM Notes Start: 05/22/21 08:17 Freq: Status: Active Protocol: Activity Type Activity Date Activity User E-Sign Co-Sign Detail Recorded Client Recorded Date Recorded By Document 05/22/21 08:59 MW [id number] 05/22/21 09:04 MW Document 05/29/21 08:36 MW [id number] 05/29/21 08:37 MW Document 06/05/21 08:22 MW [id number] 06/05/21 08:23 MW 05/22/21 05/29/21 06/05/21 08:59 08:36 08:22 Wound Center Nurse 2 #1- L LATERAL ANKLE -Time 09:01 08:36 08:22 -Correct Patient Yes Yes Yes -Correct Side, Site, Position Yes Yes Yes -Correct Procedure Yes Yes Yes -Procedure Performed Yes Yes Yes -Type of Procedure Debridement Debridement Debridement -Clinical Debridement Subcutaneous Subcutaneous Subcutaneous -Tissue Removed Subcutaneous Subcutaneous Subcutaneous -Post Debridement (cm) - Length 1.0 1.0 1.0 -Post Debridement (cm) - Width 1.0 0.8 0.6 -Post Debridement (cm) - Depth 0.3 0.2 0.3 -Total Square (Post) (cm) 1.00 0.80 0.60 -Area of Debridement (cm) - Length 1.0 1.0 1.0 -Area of Debridement (cm) - Width 1.0 0.8 0.6 -Total Square (Area) (cm) 1.00 0.80 0.60 -Tunneling No No No -Undermining/Tunneling No No No -Circular Undermining No No No -Wound/Ulcer Outcome Not Healed Not Healed Not Healed -Ulcer Cleansing Rinsed/ Rinsed/ Rinsed/ Irrigated with Irrigated with Irrigated with Saline Saline Saline -Foul Odor after Cleansing No No No -Bioengineered Tissue No No No -Bleeding Controlled with Pressure Pressure Pressure -Offloading No No No -Treatment Response Procedure Procedure Tolerated Well Tolerated Well -Debridement - Subq, 1st 20sq cm Yes Yes Yes Pain Scale: 0-10 Numeric Is Patient Pain Free? Yes Yes Yes - Nurse 3 - General Ulcer D/C NN Start: 05/22/21 08:17 Freq: Status: Active Protocol: Activity Type Activity Date Activity User E-Sign Co-Sign Detail Recorded Client Recorded Date Recorded By Document 05/22/21 09:11 ML [id number] 05/22/21 09:12 ML Document 05/29/21 08:46 RB [id number] 05/29/21 08:47 RB Document 06/05/21 08:32 DL [id number] 06/05/21 08:35 DL 05/22/21 05/29/21 06/05/21 09:11 08:46 08:32 Wound Care Nurse 3 #1- L LATERAL ANKLE -Ulcer Cleansing Rinsed/ Rinsed/ Irrigated with Irrigated with Saline Saline -Foul Odor after Cleansing No -Primary Dressing Applied Aquacel Extra Aquacel Extra, NonAdherent NonAdherent Contact Layer, Contact Layer Promogran -Other Dressing adaptic -Primary Dressing Covered/Secured with Dry Gauze,Dry Dry Gauze,Dry Dry Gauze, Gauze & Roll Gauze & Roll Secured with Gauze,Secured Gauze,Secured Tape with Tape with Tape -Aquacel Extra 1 1 -Promogran 1 Left -Other double layer Tubigrip tubigrip Treatment Response Procedure Procedure Tolerated Well Tolerated Well Pain Scale: 0-10 Numeric Is Patient Pain Free? Yes Yes Yes WC - Visit Discharge Discharge Condition Stable Stable Stable Ambulatory Status Ambulatory Ambulatory Ambulatory Transportation Private Auto Private Auto Medication Reconcilliation completed & No No provided to patient/care provider Clinical Summary of Care Provided Yes Yes Assessment/Plan Assessment/Plan (1) Asymptomatic ruptured varicose vein of left lower extremity: CODE(S): I83.92 - Asymptomatic varicose veins of left lower extremity PLAN: Cultures obtained of the ulcer staph growing in ulcer finish Bactrim DS 1 p.o. twice daily for 14 days (2) Venous insufficiency of left leg: CODE(S): I87.2 - Venous insufficiency (chronic) (peripheral) PLAN: Arterial brachial studies to be ordered with Doppler study for venous insufficiency still waiting to be scheduled patient needs to call back and schedule (3) Nonhealing ulcer of left lower extremity: CODE(S): L97.929 - Non-pressure chronic ulcer of unspecified part of left lower leg with unspecified severity QUALIFIERS: Non-pressure ulcer stage: with fat layer exposed Qualified Code(s): L97.922 - Non-pressure chronic ulcer of unspecified part of left lower leg with fat layer exposed PLAN: Wash the left leg with antibacterial soap and apply Promogran to wound base moistened cover with Adaptic gauze and tape Double layer Tubigrip to the left lower leg every day Follow-up in 1 week (4) Peripheral vascular disease of lower extremity with ulceration: CODE(S): I73.9 - Peripheral vascular disease, unspecified; L97.909 - Non-pressure chronic ulcer of unspecified part of unspecified lower leg with unspecified severity PLAN: Approved for skin substitution to the ulcer will wait till infection is cleared.
== END 2021-06-07 23:59 ==
LOC: WC 08:00
PROVIDERS: PCP Family Medicine; Visit Provider Nurse Practitioner
DX: I87.2 Venous insufficiency (chronic) (peripheral) (principal); I83.92 Asymptomatic varicose veins of left lower extremity; L97.922 Non-pressure chronic ulcer of unspecified part of left lower leg with fat layer exposed; I73.9 Peripheral vascular disease, unspecified
CPT/HCPCS: 11042; 87070; 87075; 87077; 87186; 87205; 99203; G0463

== ENCOUNTER 2021-07-03 08:00 | Outpatient (RCR) | payer MEDICARE, SELFPAY ==
[2021-06-08 00:07] VITALS: BP 135/83; PULSE 82; RESP 16; TEMP 36.3; BMI 25.5
[2021-06-19 08:37] VITALS: BP 147/70; PULSE 73; TEMP 35.6; BMI 25.5
--- NOTE | 2021-06-19 09:57 | ART_ITS ---
Reason For Study: LLE ANKLE ULCER, BLE EDEMA, PAD Procedure A bilateral lower extremity continuous wave Doppler with analog waveform analysis,segmental pressures,and ankle brachial indexes without exercise. Left Segmental Pressures Left brachial= 134mmHg. Left posterior tibial artery = 160mmHg. Left dorsalis pedis artery = 152mmHg. The left posterior tibial artery waveforms are triphasic. The left dorsalis pedis waveforms are triphasic. Right Segmental Pressures Right brachial= 135mmHg. Right posterior tibial artery = 160mmHg. Right dorsalis pedis artery = 155mmHg. The right posterior tibial artery waveforms are triphasic. The right dorsalis pedis waveforms are triphasic. Indices The right resting ankle brachial index is 1.19. The right ankle brachial index by the posterior tibial artery is 1.19. The right ankle brachial index by the dorsalis pedis is 1.15. The left resting ankle brachial index is 1.19. The left ankle brachial index by the posterior tibial artery is 1.19. The left ankle brachial index by the dorsalis pedis is 1.13. VL/Lower Ext Art Exam w/o Exercis Interpretation Summary Triphasic Doppler waveforms are noted at ankle level bilaterally. Pulse-volume recordings appear satisfactory at all levels bilaterally. Resting ankle-brachial indices are norm al bilaterally. There is no evidence of significant arterial occlusive disease in the lower ext remities bilaterally. Ordering Physician: Marycarmen Stanton Referring Physician: Marycarmen Stanton Performed By: Radha Cruz RVT, RDMELISSA
--- NOTE | 2021-06-19 09:57 | VDLE_ITS ---
Reason For Study: LLE LATERAL ANKLE ULCER RIGHT LEFT CFV is compressible, spontaneous, phasic, CFV is compressible, spontaneous, phasic, competent and demonstrates normal competent, and demonstrates normal augmentation. augmentation. FV is compressible, spontaneous, phasic, FV is compressible, spontaneous, phasic, competent and demonstrates normal competent and demonstrates normal augmentation. augmentation. POP V is compressible, spontaneous, phasic, POP V is compressible, spontaneous, phasic, competent and demonstrates normal competent and demonstrates normal augmentation. augmentation. T/P Trunk is compressible. T/P Trunk is compressible. PTV is compressible. PTV is compressible. RT PerV is compressible. LT PerV is compressible. SFJ is competent and measures 0.65 x 0.81 cm. SFJ is INCOMPETENT and measures 0.91 x 1.49 GSV proximal thigh measures 0.80 x 0.58 cm. cm. GSV at knee measures 0.58 x 0.51 cm. GSV proximal thigh measures 0.87 x 1.05 cm. GSV above knee is INCOMPETENT for greater GSV at knee measures 0.89 x 0.84 cm. than 0.5 seconds. GSV INCOMPETENT throughout for greater than GSV below knee is competent. 0.5 seconds. SSV proximal calf is competent and measures SSV proximal calf is competent and measures 0.23 x 0.20 cm. 0.26 x 0.36 cm. Procedure This is a venous duplex using B-mode, color flow and spectral Doppler. Exam performed in department. The exam was diagnostic. Patient was scanned in reverse Trendelenburg position during reflux assessment. A preliminary report was called and/or faxed to Wound Center. VL/Venous Duplex US - Vinny Extrem Interpretation Summary Deep veins of the lower extremities are bilaterally patent and compressible seg mentally. There is no evidence of deep vein thrombosis on either side. Valvular competence appears in tact within the proximal deep venous systems bilaterally. The great saphenous veins appear bila terally patent and compressible segmentally. The right sapheno-femoral junction is competent . The left sapheno-femoral junction is incompetent . The right great saphenous vein appears incompetent ab ove the knee. The right great saphenous vein appears competent below the knee. The left great sap henous vein appears segmentally incompetent. Small saphenous veins are patent and competent bilater ally. Ordering Physician: Marycarmen Stanton Referring Physician: Dilip Muhammad Performed By: Radha Cruz, CONOR, RVT
--- NOTE | 2021-06-19 12:17 | PN.PCM_ITS ---
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 He has been seen by his family doctor and has been placed on clindamycin no cultures were taken and he has been using Bactroban topically since January to keep it clean he said it did get some redness around the area and that frightened him. He is referred Here by his family doctor. Patient states 10 years ago was seen by Dr. 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 He was supposed to have surgery to remove it and they told him he had to have an EKG and he did not have time because of worse work schedule. 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 He has many varicosities and a ropey varicosities in the upper leg and fine broken varicosities in the lower leg. He also on the anterior white of his left leg has this discoloration and indentation almost looks like a scar but he states it is not. Progress of Wound: The wound is still getting new skin growth in the base but still is rather deep. Area around the wound is normal color no sign of infection. Applied for skin subs and they were approved we will apply the first epi fix today. Subjective Subjective Patient complains of increased pain in the wound he is anxious to get this moving along he approves for the epi fix to be used. He also has finally scheduled himself I think later today for his venous study so we can move on with his legs. Objective Data Objective Data Wound base shows new growth and some slough did do morbid debridement came out well. Is very tender to debride. Epi fix #1 apply to the area and covered with wound veil and Steri-Strips with Aquacel extra over top to protect patient was instructed not to change and not to get wet. We will reevaluate in 1 week Vital Signs: Vital Signs Temp Pulse Resp BP 96.1 F L 73 16 147/70 H 06/19/21 08:37 06/19/21 08:37 06/08/21 00:07 06/19/21 08:37 Weight: 168 lb Body Mass Index (BMI) 25.5 Lab / Micro Data Attestation: I reviewed the patient's lab results. Physical Exam Const oriented x3 General Appearance: cooperative Exam Limitations: no limitations Resp normal respiratory effort Effort and Inspection: able to speak in complete sentences Auscultation: clear to auscultation bilaterally Cardio regular rate and regular rhythm Palpation: normal PMI Rate: regular rate Rhythm: regular rhythm GI Auscultation: normoactive bowel sounds Palpation: soft and no hepatosplenomegaly Extremity normal to inspection General Extremity: normal exam except as noted Skin no rashes or lesions noted Skin Narrative: Left lateral ankle venous insufficiency he has a large hole that is getting bigger clean some slough denies any pain at this time. Neuro oriented x3 Psych Appearance: grossly normal Speech: normal speech Thought Content: normal thought content Judgement: judgement good Debridement Note Debridement Note Wound debrided: Left lateral ankle Type of Debridement: Excisional debridement Anesthesia Used: 5% Lidocaine Gel Depth: Down to and including healthy tissue and in the subcutaneous layer Percentage of wound debrided: 100 Instrument Used: 3mm curette Tissue Removed: Fibrin and some slough Severity: Fat Layer Exposed Amount of bleeding with debridement: Mild Bleeding Controlled with: Compression and gauze Patient tolerated procedure: Patient tolerated procedure well Post-Debridement Measurements and Additional Note: Post-Debridement Measurements/Treatment - Nurse 1 - General Ulcer Assessment Start: 06/19/21 08:36 Freq: Status: Active Protocol: WC.LOWEXT Activity Type Activity Date Activity User E-Sign Co-Sign Detail Recorded Client Recorded Date Recorded By Document 06/19/21 08:37 [place] [id number] 06/19/21 08:41 LYNDSEY 06/19/21 08:37 - Today's Visit Information Type of service 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 Any new allergies or adverse reactions No Had a fall/change in ADL's that may No increase risk of falls Signs or symptoms of abuse and/or No neglect since last visit Have you been in the hospital since your No last visit? Has dressing in place as prescribed Yes Has compression in place as prescribed Yes Has offloadiing in place as prescribed N/A Experienced any changes in pain level or No management Left Footwear Regular Shoe Right Footwear Regular Shoe Pain Scale: 0-10 Numeric Is Patient Pain Free? Yes WC - Nurse 1 - General Ulcer Measurement Start: 06/19/21 08:36 Freq: Status: Active Protocol: Activity Type Activity Date Activity User E-Sign Co-Sign Detail Recorded Client Recorded Date Recorded By Document 06/19/21 08:37 LYNDSEY [id number] 06/19/21 08:41 LYNDSEY 06/19/21 08:37 Wound Center Nurse 1 #1- L LATERAL ANKLE -Combined with other wound No -Current Size (cm) - Length 0.6 -Current Size (cm) - Width 0.6 -Current Size (cm) - Depth 0.3 -Total Square Cm 0.36 -Photo Taken No -Epithelialization None Present -Tunneling No -Undermining/Tunneling No -Circular Undermining No -Exudate Amt Medium -Exudate Type Serosanguineous -Wound Margin Distinct, Outline Attached -Granulation Amt None Present (0 %) -Granulation Quality N/A -Slough/Fibrin No -Necrosis Amt None Present (0 %) -Structure Exposed N/A -Texture (Casi-wound Skin Appearance) No Abnormality, Assessed -Moisture (Casi-wound Skin Appearance) No Abnormality, Assessed -Color (Casi-wound Skin Appearance) No Abnormality, Assessed -Temperature (Casi-wound Skin No Abnormality Appearance) (Pt Warm) -Tenderness on Palpation (Casi-wound No Skin Appearance) -Ulcer Cleansing Rinsed/ Irrigated with Saline -Foul Odor after Cleansing No -Anesthetic Used 4% Lidocaine Solution Left Calf (cm) 35 Left Ankle (cm) 23 WC - Nurse 3 - General Ulcer D/C NN Start: 06/19/21 08:36 Freq: Status: Active Protocol: Activity Type Activity Date Activity User E-Sign Co-Sign Detail Recorded Client Recorded Date Recorded By Document 06/19/21 08:37 [place] [id number] 06/19/21 08:41 [place] 06/19/21 08:37 Vital Signs Temperature (97.8 F-99.1 F) 96.1 F L Temperature Source Temporal Pulse Rate (60-100) 73 Pulse Location Monitor Blood Pressure (90/60-120/80) 147/70 H Blood Pressure Mean (mm Hg) 95 Source Monitor Pain Scale: 0-10 Numeric Is Patient Pain Free? Yes Wound Care Nurse 3 #1- L LATERAL ANKLE -Ulcer Cleansing Rinsed/ Irrigated with Saline -Foul Odor after Cleansing No -Negative Pressure Wound Therapy N/A -Primary Dressing Applied Aquacel Extra -Primary Dressing Covered/Secured with Dry Gauze, Secured with Tape -Aquacel Extra 1 Left -Lotion applied to leg before No compression wrap -Tubular Bandage Double Layer -Size of Tubigrip Used Size E -Size E ($) 2 WC - Visit Discharge Discharge Condition Stable Ambulatory Status Ambulatory Transportation Private Auto Medication Reconcilliation completed & No provided to patient/care provider Clinical Summary of Care Provided Yes Assessment/Plan Assessment/Plan (1) Asymptomatic ruptured varicose vein of left lower extremity: CODE(S): I83.92 - Asymptomatic varicose veins of left lower extremity (2) Venous insufficiency of left leg: CODE(S): I87.2 - Venous insufficiency (chronic) (peripheral) PLAN: Arterial brachial studies to be ordered with Doppler study for venous insufficiency scheduled for today at 10 AM (3) Nonhealing ulcer of left lower extremity: CODE(S): L97.929 - Non-pressure chronic ulcer of unspecified part of left lower leg with unspecified severity QUALIFIERS: Non-pressure ulcer stage: with fat layer exposed Qualified Code(s): L97.922 - Non-pressure chronic ulcer of unspecified part of left lower leg with fat layer exposed PLAN: Epi fix #1 applied to base covered with wound veil and Steri-Strips Aquacel extra over top with gauze dressing Patient instructed not to get wet Follow-up in 1 week (4) Peripheral vascular disease of lower extremity with ulceration: CODE(S): I73.9 - Peripheral vascular disease, unspecified; L97.909 - Non- pressure chronic ulcer of unspecified part of unspecified lower leg with unspecified severity
[2021-06-26 09:02] VITALS: BP 142/80; TEMP 36.2; BMI 25.5
--- NOTE | 2021-06-26 09:37 | PCM.WC.PN ---
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 He has been seen by his family doctor and has been placed on clindamycin no cultures were taken and he has been using Bactroban topically since January to keep it clean he said it did get some redness around the area and that frightened him. He is referred Here by his family doctor. Patient states 10 years ago was seen by Dr. 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 He was supposed to have surgery to remove it and they told him he had to have an EKG and he did not have time because of worse work schedule. 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 He has many varicosities and a ropey varicosities in the upper leg and fine broken varicosities in the lower leg. He also on the anterior white of his left leg has this discoloration and indentation almost looks like a scar but he states it is not. Progress of Wound: The wound is still getting new skin growth in the base but still is rather deep. Area around the wound is getting erythematous and very tender .He c/o pain all day while on his feet. He had his first application of Epifix this past week and it is smaller Willl obtain cultures again. Subjective Subjective c/o pain and noted some swellingand redness. Objective Data Objective Data as stated above in the progress note some erythema and tenderness to palpate around the wound .Still painful to d?bride the wound. Will call patient if cultures are + . Still applied Epifix #2 because the measurements are smaller. Studies done of the legs and he does have areas that need to be addressed by [facility]. Vital Signs: Vital Signs Temp Pulse Resp BP 97.2 F L 73 16 142/80 H 06/26/21 09:02 06/19/21 08:37 06/08/21 00:07 06/26/21 09:02 Weight: 168 lb Body Mass Index (BMI) 25.5 Lab / Micro Data Attestation: I reviewed the patient's lab results. Physical Exam Const oriented x3 General Appearance: cooperative Exam Limitations: no limitations Resp normal respiratory effort Effort and Inspection: able to speak in complete sentences Auscultation: clear to auscultation bilaterally Cardio regular rate and regular rhythm Palpation: normal PMI Rate: regular rate Rhythm: regular rhythm GI Auscultation: normoactive bowel sounds Palpation: soft and no hepatosplenomegaly Extremity normal to inspection General Extremity: normal exam except as noted Skin no rashes or lesions noted Skin Narrative: Left lateral ankle venous insufficiency he has a large hole that is getting bigger clean some slough denies any pain at this time. Neuro oriented x3 Psych Appearance: grossly normal Speech: normal speech Thought Content: normal thought content Judgement: judgement good Debridement Note Debridement Note Wound debrided: L lateral ankle Type of Debridement: Excisional debridement Anesthesia Used: 5% Lidocaine Gel Depth: Down to and including healthy tissue Percentage of wound debrided: 100 Instrument Used: 3mm curette Severity: Fat Layer Exposed Amount of bleeding with debridement: Mild Bleeding Controlled with: Compression and gauze Patient tolerated procedure: Patient tolerated procedure well Post-Debridement Measurements and Additional Note: Post-Debridement Measurements/Treatment - Nurse 1 - General Ulcer Assessment Start: 06/19/21 08:36 Freq: Status: Active Protocol: BANDAR Activity Type Activity Date Activity User E-Sign Co-Sign Detail Recorded Client Recorded Date Recorded By Document 06/19/21 08:37 [place] [id number] 06/19/21 08:41 [place] Document 06/26/21 09:02 NC [id number] 06/26/21 09:05 [place] 06/19/21 06/26/21 08:37 09:02 - Today's Visit Information Type of service Follow-up Visit 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 ) Arrival Mode Ambulatory Ambulatory Patient Identification Verified (Name & Yes Yes ) Patient Requires Transmission-Based No No Precautions Safety Precautions NA NA Height and Weight Weight Measurement Method Standing Scale Body Mass Index (BMI) 25.5 25.5 BMI Classification Overweight Overweight Vital Signs Temperature (97.8 F-99.1 F) 96.1 F L 97.2 F L Temperature Source Temporal Temporal Pulse Rate (60-100) 73 Pulse Location Monitor Blood Pressure (90/60-120/80) 147/70 H 142/80 H Blood Pressure Mean (mm Hg) 95 100 Source Monitor Monitor History Since Last Visit- (Skip if this is Patient's initial visit) Have you changed medications since your No No last visit? Any new allergies or adverse reactions No No Had a fall/change in ADL's that may No No increase risk of falls Signs or symptoms of abuse and/or No No neglect since last visit Have you been in the hospital since your No No last visit? Has dressing in place as prescribed Yes Yes Has compression in place as prescribed Yes No Has offloadiing in place as prescribed N/A N/A Experienced any changes in pain level or No No management Left Footwear Regular Shoe Regular Shoe Right Footwear Regular Shoe Regular Shoe Pain Scale: 0-10 Numeric Is Patient Pain Free? Yes Yes WC - Nurse 1 - General Ulcer Measurement Start: 06/19/21 08:36 Freq: Status: Active Protocol: Activity Type Activity Date Activity User E-Sign Co-Sign Detail Recorded Client Recorded Date Recorded By Document 06/19/21 08:37 [place] [id number] 06/19/21 08:41 [place] Document 06/26/21 09:02 [place] [id number] 06/26/21 09:05 [place] 06/19/21 06/26/21 08:37 09:02 Wound Center Nurse 1 #1- L LATERAL ANKLE -Combined with other wound No No -Current Size (cm) - Length 0.6 0.5 -Current Size (cm) - Width 0.6 0.5 -Current Size (cm) - Depth 0.3 0.2 -Total Square Cm 0.36 0.25 -Photo Taken No No -Epithelialization None Present None Present -Tunneling No No -Undermining/Tunneling No No -Circular Undermining No No -Change in Wound Grade/Stage No -Exudate Amt Medium Small -Exudate Type Serosanguineous Serosanguineous -Wound Margin Distinct, Distinct, Outline Outline Attached Attached -Granulation Amt None Present (0 None Present (0 %) %) -Granulation Quality N/A N/A -Slough/Fibrin No Yes -Necrosis Amt None Present (0 Small (1-33%) %) -Necrotic Tissue Type Adherent Slough -Structure Exposed N/A N/A -Texture (Casi-wound Skin Appearance) No Abnormality, No Abnormality, Assessed Assessed -Moisture (Casi-wound Skin Appearance) No Abnormality, No Abnormality, Assessed Assessed -Color (Casi-wound Skin Appearance) No Abnormality, No Abnormality, Assessed Assessed -Temperature (Casi-wound Skin No Abnormality No Abnormality Appearance) (Pt Warm) (Pt Warm) -Tenderness on Palpation (Casi-wound No No Skin Appearance) -Ulcer Cleansing Rinsed/ Rinsed/ Irrigated with Irrigated with Saline Saline -Foul Odor after Cleansing No No -Anesthetic Used 4% Lidocaine 4% Lidocaine Solution Solution Lower Limb Edema Present No Left Calf (cm) 35 Left Ankle (cm) 23 WC - Nurse 2 - General Ulcer CM Notes Start: 06/19/21 08:36 Freq: Status: Active Protocol: Activity Type Activity Date Activity User E-Sign Co-Sign Detail Recorded Client Recorded Date Recorded By Document 06/19/21 08:25 MW [id number] 06/20/21 16:31 MW Document 06/26/21 08:23 MW [id number] 06/26/21 08:33 MW 06/19/21 06/26/21 08:25 08:23 Wound Center Nurse 2 #1- L LATERAL ANKLE -Time 08:25 08:31 -Correct Patient Yes Yes -Correct Side, Site, Position Yes Yes -Correct Procedure Yes Yes -Procedure Performed Yes Yes -Type of Procedure Debridement Debridement -Clinical Debridement Subcutaneous Subcutaneous -Tissue Removed Subcutaneous Subcutaneous -Post Debridement (cm) - Length 1.0 0.8 -Post Debridement (cm) - Width 0.6 0.4 -Post Debridement (cm) - Depth 0.4 0.4 -Total Square (Post) (cm) 0.60 0.32 -Area of Debridement (cm) - Length 1.0 0.8 -Area of Debridement (cm) - Width 0.6 0.4 -Total Square (Area) (cm) 0.60 0.32 -Tunneling No No -Undermining/Tunneling No No -Circular Undermining No No -Wound/Ulcer Outcome Not Healed Not Healed -Ulcer Cleansing Rinsed/ Rinsed/ Irrigated with Irrigated with Saline Saline -Foul Odor after Cleansing No No -Bioengineered Tissue Yes Yes -Type of Bioengineered Tissue Epifix 18mm Epifix 18mm Disc Disc -Expiration Date 02/06/26 02/06/26 -Product Lot Number [id number] -Percent Used 100 100 -Lot number of Saline Used [id number] -Bleeding Controlled with Pressure Pressure -Offloading No No -Treatment Response Procedure Procedure Tolerated Well Tolerated Well -Debridement - Subq, 1st 20sq cm No No -Apply Skin Sub - 1st 25 sq cm - Legs 1 1 -Epifix 18mm Disc 3 3 Pain Scale: 0-10 Numeric Is Patient Pain Free? Yes Yes WC - Nurse 3 - General Ulcer D/C NN Start: 06/19/21 08:36 Freq: Status: Active Protocol: Activity Type Activity Date Activity User E-Sign Co-Sign Detail Recorded Client Recorded Date Recorded By Document 06/19/21 08:37 LYNDSEY [id number] 06/19/21 08:41 [place] Document 06/26/21 09:02 LYNDSEY [id number] 06/26/21 09:05 [place] 06/19/21 06/26/21 08:37 09:02 Vital Signs Temperature (97.8 F-99.1 F) 96.1 F L 97.2 F L Temperature Source Temporal Temporal Pulse Rate (60-100) 73 Pulse Location Monitor Blood Pressure (90/60-120/80) 147/70 H 142/80 H Blood Pressure Mean (mm Hg) 95 100 Source Monitor Monitor Pain Scale: 0-10 Numeric Is Patient Pain Free? Yes Yes Wound Care Nurse 3 #1- L LATERAL ANKLE -Ulcer Cleansing Rinsed/ Not Cleansed Irrigated with Saline -Foul Odor after Cleansing No No -Negative Pressure Wound Therapy N/A N/A -Primary Dressing Applied Aquacel Extra Aquacel Extra -Primary Dressing Covered/Secured with Dry Gauze, Dry Gauze, Secured with Secured with Tape Tape -Aquacel Extra 1 1 Left -Lotion applied to leg before No No compression wrap -Tubular Bandage Double Layer -Size of Tubigrip Used Size E -Size E ($) 2 -Other ordered double tubi but has at home and doesn 't want another pair WC - Visit Discharge Discharge Condition Stable Stable Ambulatory Status Ambulatory Ambulatory Transportation Private Auto Private Auto Medication Reconcilliation completed & No No provided to patient/care provider Clinical Summary of Care Provided Yes Yes Assessment/Plan Assessment/Plan (1) Asymptomatic ruptured varicose vein of left lower extremity: CODE(S): I83.92 - Asymptomatic varicose veins of left lower extremity (2) Venous insufficiency of left leg: CODE(S): I87.2 - Venous insufficiency (chronic) (peripheral) PLAN: Referral to Dr Childers vascular (3) Nonhealing ulcer of left lower extremity: CODE(S): L97.929 - Non-pressure chronic ulcer of unspecified part of left lower leg with unspecified severity QUALIFIERS: Non-pressure ulcer stage: with fat layer exposed Qualified Code(s): L97.922 - Non-pressure chronic ulcer of unspecified part of left lower leg with fat layer exposed PLAN: Epi fix #2 applied to base covered with wound veil and Steri-Strips adaptic genteel,Aquacel extra over top with gauze dressing Patient instructed not to get wet Will call with the results of the cultlures Follow-up in 1 week (4) Peripheral vascular disease of lower extremity with ulceration: CODE(S): I73.9 - Peripheral vascular disease, unspecified; L97.909 - Non-pressure chronic ulcer of unspecified part of unspecified lower leg with unspecified severity
[2021-07-03 08:04] VITALS: BP 160/65; PULSE 80; TEMP 36.8; BMI 25.5
--- NOTE | 2021-07-03 08:47 | PCM.WC.PN ---
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 He has been seen by his family doctor and has been placed on clindamycin no cultures were taken and he has been using Bactroban topically since January to keep it clean he said it did get some redness around the area and that frightened him. He is referred Here by his family doctor. Patient states 10 years ago was seen by Dr. 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 He was supposed to have surgery to remove it and they told him he had to have an EKG and he did not have time because of worse work schedule. 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 He has many varicosities and a ropey varicosities in the upper leg and fine broken varicosities in the lower leg. He also on the anterior white of his left leg has this discoloration and indentation almost looks like a scar but he states it is not. Progress of Wound: LessThe wound is still getting new skin growth in the base but still is rather deep. Area around the wound is less erythematous and not as tender .cultures came back positive and he was started on antibiotic therapy. We applied epi fix #3. He does have an appoint with Dr. Childers next Thursday. Subjective Subjective Just started his antibiotic yesterday and he still having pain and itching. Has an 845 appointment next Thursday with Dr. Childers for evaluation and treatment Objective Data Objective Data As above written. Patient doing better it measurements do show slightly shallower. Patient will start his antibiotic and finish Vital Signs: Vital Signs Temp Pulse Resp BP 98.2 F 80 16 160/65 H 07/03/21 08:04 07/03/21 08:04 06/08/21 00:07 07/03/21 08:04 Weight: 168 lb Body Mass Index (BMI) 25.5 Lab / Micro Data Attestation: I reviewed the patient's lab results. Micro: Microbiology 06/26/21 08:25 Tissue Ulcer - Ankle Gram Stain - Final 06/26/21 08:25 Tissue Ulcer - Ankle Wound Culture - Final Enterococcus faecalis Corynebacterium amycolatum 06/26/21 08:25 Tissue Ulcer - Ankle Anaerobic Culture - Final No anaerobic bacteria isolated. Physical Exam Const oriented x3 General Appearance: cooperative Exam Limitations: no limitations Resp normal respiratory effort Effort and Inspection: able to speak in complete sentences Auscultation: clear to auscultation bilaterally Cardio regular rate and regular rhythm Palpation: normal PMI Rate: regular rate Rhythm: regular rhythm GI Auscultation: normoactive bowel sounds Palpation: soft and no hepatosplenomegaly Extremity normal to inspection General Extremity: normal exam except as noted Skin no rashes or lesions noted Skin Narrative: Left lateral ankle venous insufficiency he has a large hole that is getting bigger clean some slough denies any pain at this time. Neuro oriented x3 Psych Appearance: grossly normal Speech: normal speech Thought Content: normal thought content Judgement: judgement good Debridement Note Debridement Note Wound debrided: Left lateral ankle Type of Debridement: Excisional debridement Anesthesia Used: 5% Lidocaine Gel Depth: in the subcutaneous layer Percentage of wound debrided: 100 Instrument Used: 3mm curette Tissue Removed: Fibrin Severity: Fat Layer Exposed Amount of bleeding with debridement: None Bleeding Controlled with: Compression and gauze Patient tolerated procedure: Patient tolerated procedure well Post-Debridement Measurements and Additional Note: Post-Debridement Measurements/Treatment - Nurse 1 - General Ulcer Assessment Start: 06/19/21 08:36 Freq: Status: Active Protocol: ROQUE.LOWGERALDT Activity Type Activity Date Activity User E-Sign Co-Sign Detail Recorded Client Recorded Date Recorded By Document 06/19/21 08:37 PA [id number] 06/19/21 08:41 PA Document 06/26/21 09:02 PA [id number] 06/26/21 09:05 PA Document 07/03/21 08:04 PA [id number] 07/03/21 08:06 AK 06/19/21 06/26/21 07/03/21 08:37 09:02 08:04 - Today's Visit Information Type of service Follow-up Visit Initial Visit Follow-up Visit (Physician/HOME HEALTH AIDE (Physician/HOME HEALTH AIDE ) ) Arrival Mode Ambulatory Ambulatory Ambulatory Patient Identification Verified (Name & Yes Yes Yes ) Patient Requires Transmission-Based No No No Precautions Safety Precautions NA NA NA Height and Weight Weight Measurement Method Standing Scale Body Mass Index (BMI) 25.5 25.5 25.5 BMI Classification Overweight Overweight Overweight Vital Signs Temperature (97.8 F-99.1 F) 96.1 F L 97.2 F L 98.2 F Temperature Source Temporal Temporal Temporal Pulse Rate (60-100) 73 80 Pulse Location Monitor Monitor Blood Pressure (90/60-120/80) 147/70 H 142/80 H 160/65 H Blood Pressure Mean (mm Hg) 95 100 96 Source Monitor Monitor Monitor History Since Last Visit- (Skip if this is Patient's initial visit) Have you changed medications since your No No No last visit? Any new allergies or adverse reactions No No No Had a fall/change in ADL's that may No No No increase risk of falls Signs or symptoms of abuse and/or No No No neglect since last visit Have you been in the hospital since your No No No last visit? Has dressing in place as prescribed Yes Yes Yes Has compression in place as prescribed Yes No Yes Has offloadiing in place as prescribed N/A N/A No Experienced any changes in pain level or No No No management Left Footwear Regular Shoe Regular Shoe Regular Shoe Right Footwear Regular Shoe Regular Shoe Regular Shoe Pain Scale: 0-10 Numeric Is Patient Pain Free? Yes Yes Yes WC - Nurse 1 - General Ulcer Measurement Start: 06/19/21 08:36 Freq: Status: Active Protocol: Activity Type Activity Date Activity User E-Sign Co-Sign Detail Recorded Client Recorded Date Recorded By Document 06/19/21 08:37 PA [id number] 06/19/21 08:41 PA Document 06/26/21 09:02 PA [id number] 06/26/21 09:05 PA Document 07/03/21 08:04 PA [id number] 07/03/21 08:06 PA 06/19/21 06/26/21 07/03/21 08:37 09:02 08:04 Wound Center Nurse 1 #1- L LATERAL ANKLE -Combined with other wound No No No -Current Size (cm) - Length 0.6 0.5 0.7 -Current Size (cm) - Width 0.6 0.5 0.6 -Current Size (cm) - Depth 0.3 0.2 0.3 -Total Square Cm 0.36 0.25 0.42 -Photo Taken No No No -Epithelialization None Present None Present Medium 34-66% -Tunneling No No No -Undermining/Tunneling No No No -Circular Undermining No No No -Change in Wound Grade/Stage No No -Exudate Amt Medium Small Medium -Exudate Type Serosanguineous Serosanguineous Serosanguineous -Wound Margin Distinct, Distinct, Distinct, Outline Outline Outline Attached Attached Attached -Granulation Amt None Present (0 None Present (0 Medium (34-66%) %) %) -Granulation Quality N/A N/A Pale,[place],Red -Slough/Fibrin No Yes Yes -Necrosis Amt None Present (0 Small (1-33%) Medium (34-66%) %) -Necrotic Tissue Type Adherent Slough Adherent Slough -Structure Exposed N/A N/A N/A -Texture (Casi-wound Skin Appearance) No Abnormality, No Abnormality, No Abnormality, Assessed Assessed Assessed -Moisture (Casi-wound Skin Appearance) No Abnormality, No Abnormality, No Abnormality, Assessed Assessed Assessed -Color (Casi-wound Skin Appearance) No Abnormality, No Abnormality, No Abnormality, Assessed Assessed Assessed -Temperature (Casi-wound Skin No Abnormality No Abnormality No Abnormality Appearance) (Pt Warm) (Pt Warm) (Pt Warm) -Tenderness on Palpation (Casi-wound No No No Skin Appearance) -Ulcer Cleansing Rinsed/ Rinsed/ Rinsed/ Irrigated with Irrigated with Irrigated with Saline Saline Saline -Foul Odor after Cleansing No No No -Anesthetic Used 4% Lidocaine 4% Lidocaine 4% Lidocaine Solution Solution Solution Lower Limb Edema Present No Left Calf (cm) 35 35 Left Ankle (cm) 23 24 WC - Nurse 2 - General Ulcer CM Notes Start: 06/19/21 08:36 Freq: Status: Active Protocol: Activity Type Activity Date Activity User E-Sign Co-Sign Detail Recorded Client Recorded Date Recorded By Document 06/19/21 08:25 MW [id number] 06/20/21 16:31 MW Document 06/26/21 08:23 MW [id number] 06/26/21 08:33 MW Document 07/03/21 08:19 MW [id number] 07/03/21 08:24 MW 06/19/21 06/26/21 07/03/21 08:25 08:23 08:19 Wound Center Nurse 2 #1- L LATERAL ANKLE -Time 08:25 08:31 08:22 -Correct Patient Yes Yes Yes -Correct Side, Site, Position Yes Yes Yes -Correct Procedure Yes Yes Yes -Procedure Performed Yes Yes Yes -Type of Procedure Debridement Debridement Debridement -Clinical Debridement Subcutaneous Subcutaneous Subcutaneous -Tissue Removed Subcutaneous Subcutaneous Subcutaneous -Post Debridement (cm) - Length 1.0 0.8 0.8 -Post Debridement (cm) - Width 0.6 0.4 0.4 -Post Debridement (cm) - Depth 0.4 0.4 0.3 -Total Square (Post) (cm) 0.60 0.32 0.32 -Area of Debridement (cm) - Length 1.0 0.8 0.8 -Area of Debridement (cm) - Width 0.6 0.4 0.4 -Total Square (Area) (cm) 0.60 0.32 0.32 -Tunneling No No No -Undermining/Tunneling No No No -Circular Undermining No No No -Wound/Ulcer Outcome Not Healed Not Healed Not Healed -Ulcer Cleansing Rinsed/ Rinsed/ Rinsed/ Irrigated with Irrigated with Irrigated with Saline Saline Saline -Foul Odor after Cleansing No No No -Bioengineered Tissue Yes Yes Yes -Type of Bioengineered Tissue Epifix 18mm Epifix 18mm Epifix 18mm Disc Disc Disc -Expiration Date 02/06/26 02/06/26 03/08/26 -Product Lot Number [id number] -Percent Used 100 100 100 -Lot number of Saline Used [id number] -Bleeding Controlled with Pressure Pressure Pressure -Offloading No No No -Treatment Response Procedure Procedure Procedure Tolerated Well Tolerated Well Tolerated Well -Debridement - Subq, 1st 20sq cm No No No -Apply Skin Sub - 1st 25 sq cm - Legs 1 1 1 -Epifix 18mm Disc 3 3 3 Pain Scale: 0-10 Numeric Is Patient Pain Free? Yes Yes Yes WC - Nurse 3 - General Ulcer D/C NN Start: 06/19/21 08:36 Freq: Status: Active Protocol: Activity Type Activity Date Activity User E-Sign Co-Sign Detail Recorded Client Recorded Date Recorded By Document 06/19/21 08:37 LYNDSEY [id number] 06/19/21 08:41 AK Document 06/26/21 09:02 LYNDSEY [id number] 06/26/21 09:05 AK Document 07/03/21 08:33 LYNDSEY [id number] 07/03/21 08:34 AK 06/19/21 06/26/21 07/03/21 08:37 09:02 08:33 Vital Signs Temperature (97.8 F-99.1 F) 96.1 F L 97.2 F L Temperature Source Temporal Temporal Pulse Rate (60-100) 73 Pulse Location Monitor Blood Pressure (90/60-120/80) 147/70 H 142/80 H Blood Pressure Mean (mm Hg) 95 100 Source Monitor Monitor Pain Scale: 0-10 Numeric Is Patient Pain Free? Yes Yes Yes Wound Care Nurse 3 #1- L LATERAL ANKLE -Ulcer Cleansing Rinsed/ Not Cleansed Rinsed/ Irrigated with Irrigated with Saline Saline -Foul Odor after Cleansing No No No -Negative Pressure Wound Therapy N/A N/A N/A -Primary Dressing Applied Aquacel Extra Aquacel Extra Aquacel Extra -Primary Dressing Covered/Secured with Dry Gauze, Dry Gauze, Dry Gauze, Secured with Secured with Secured with Tape Tape Tape -Aquacel Extra 1 1 1 Left -Lotion applied to leg before No No compression wrap -Tubular Bandage Double Layer -Size of Tubigrip Used Size E -Size E ($) 2 -Other ordered double tubi but has at home and doesn 't want another pair WC - Visit Discharge Discharge Condition Stable Stable Stable Ambulatory Status Ambulatory Ambulatory Ambulatory Transportation Private Auto Private Auto Private Auto Medication Reconcilliation completed & No No No provided to patient/care provider Clinical Summary of Care Provided Yes Yes Yes Assessment/Plan Assessment/Plan (1) Asymptomatic ruptured varicose vein of left lower extremity: CODE(S): I83.92 - Asymptomatic varicose veins of left lower extremity (2) Venous insufficiency of left leg: CODE(S): I87.2 - Venous insufficiency (chronic) (peripheral) PLAN: DR Childers vascular surgeon appointment next Thursday 8:45 AM (3) Nonhealing ulcer of left lower extremity: CODE(S): L97.929 - Non-pressure chronic ulcer of unspecified part of left lower leg with unspecified severity QUALIFIERS: Non-pressure ulcer stage: with fat layer exposed Qualified Code(s): L97.922 - Non-pressure chronic ulcer of unspecified part of left lower leg with fat layer exposed PLAN: Epi fix #3 applied to base covered with wound veil and Steri-Strips adaptic genteel,Aquacel extra over top with gauze dressing Patient instructed not to get wet Continue antibiotic therapy Follow-up in 1 week (4) Peripheral vascular disease of lower extremity with ulceration: CODE(S): I73.9 - Peripheral vascular disease, unspecified; L97.909 - Non-pressure chronic ulcer of unspecified part of unspecified lower leg with unspecified severity
== END 2021-07-08 23:59 ==
LOC: WC 08:00
PROVIDERS: PCP Family Medicine; Referring Provider Nurse Practitioner; Visit Provider Nurse Practitioner
DX: I87.2 Venous insufficiency (chronic) (peripheral) (principal); L97.922 Non-pressure chronic ulcer of unspecified part of left lower leg with fat layer exposed; I83.92 Asymptomatic varicose veins of left lower extremity
CPT/HCPCS: 15271; 87070; 87075; 87077; 87186; 87205; 93923; 93970; Q4186

== ENCOUNTER 2021-07-31 08:00 | Outpatient (RCR) | payer MEDICARE, SELFPAY ==
[2021-07-09 00:14] VITALS: BP 160/65; PULSE 80; RESP 16; TEMP 36.8; BMI 25.5
[2021-07-10 08:04] VITALS: BP 126/64; PULSE 81; TEMP 36.1; BMI 25.5
--- NOTE | 2021-07-10 09:05 | PN.PCM_ITS ---
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 He has been seen by his family doctor and has been placed on clindamycin no cultures were taken and he has been using Bactroban topically since January to keep it clean he said it did get some redness around the area and that frightened him. He is referred Here by his family doctor. Patient states 10 years ago was seen by Dr. 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 He was supposed to have surgery to remove it and they told him he had to have an EKG and he did not have time because of worse work schedule. 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 He has many varicosities and a ropey varicosities in the upper leg and fine broken varicosities in the lower leg. He also on the anterior white of his left leg has this discoloration and indentation almost looks like a scar but he states it is not. Progress of Wound: Wound measurements have not changed much but it is improving with new cell growth in the base from the epi fix. Less pain and patient has an appointment with Dr. Childers right after our appointment today. Subjective Subjective Patient states he changed shoes and it was rubbing it was causing increase in pain Objective Data Objective Data A noted scab above the area from him wearing different shoes otherwise he said the epi fix dressing stayed on very long and very well this week. Patient is taking his antibiotic doxycycline for another week. From his positive cultures Wound is healing well it is filling in with new cell growth just slow but it is the undermining is disappearing. Vital Signs: Vital Signs Temp Pulse Resp BP 96.9 F L 81 16 126/64 H 07/10/21 08:04 07/10/21 08:04 07/09/21 00:14 07/10/21 08:04 Weight: 168 lb Body Mass Index (BMI) 25.5 Lab / Micro Data Attestation: I reviewed the patient's lab results. Physical Exam Const oriented x3 General Appearance: cooperative Exam Limitations: no limitations Resp normal respiratory effort Effort and Inspection: able to speak in complete sentences Auscultation: clear to auscultation bilaterally Cardio regular rate and regular rhythm Palpation: normal PMI Rate: regular rate Rhythm: regular rhythm GI Auscultation: normoactive bowel sounds Palpation: soft and no hepatosplenomegaly Extremity normal to inspection General Extremity: normal exam except as noted Skin no rashes or lesions noted Skin Narrative: Left lateral ankle venous insufficiency he has a large hole that is getting bigger clean some slough denies any pain at this time. Neuro oriented x3 Psych Appearance: grossly normal Speech: normal speech Thought Content: normal thought content Judgement: judgement good Debridement Note Debridement Note Wound debrided: Left lateral foot from peripheral vascular disease Laterality: Left Type of Debridement: Excisional debridement Anesthesia Used: 5% Lidocaine Gel Depth: Down to and including healthy tissue Percentage of wound debrided: 100 Instrument Used: 3mm curette Tissue Removed: Fibrin Severity: Fat Layer Exposed Amount of bleeding with debridement: None Bleeding Controlled with: Compression and gauze Patient tolerated procedure: Patient tolerated procedure well Post-Debridement Measurements and Additional Note: Post-Debridement Measurements/Treatment - Nurse 1 - General Ulcer Assessment Start: 07/10/21 08:04 Freq: Status: Active Protocol: ROQUE.YI Activity Type Activity Date Activity User E-Sign Co-Sign Detail Recorded Client Recorded Date Recorded By Document 07/10/21 08:04 LYNDSEY [id number] 07/10/21 08:06 LYNDSEY 07/10/21 08:04 WC - Today's Visit Information Type of service Follow-up Visit (Physician/LOAD DROPPER ) Arrival Mode Ambulatory Patient Identification Verified (Name & Yes ) Patient Requires Transmission-Based No Precautions Safety Precautions NA Height and Weight Body Mass Index (BMI) 25.5 BMI Classification Overweight Vital Signs Temperature (97.8 F-99.1 F) 96.9 F L Temperature Source Temporal Pulse Rate (60-100) 81 Pulse Location Monitor Blood Pressure (90/60-120/80) 126/64 H Blood Pressure Mean (mm Hg) 84 Source Monitor History Since Last Visit- (Skip if this is Patient's initial visit) Have you changed medications since your No last visit? Any new allergies or adverse reactions No Had a fall/change in ADL's that may No increase risk of falls Signs or symptoms of abuse and/or No neglect since last visit Have you been in the hospital since your No last visit? Has dressing in place as prescribed Yes Has compression in place as prescribed Yes Has offloadiing in place as prescribed No Experienced any changes in pain level or No management Left Footwear Regular Shoe Right Footwear Regular Shoe Pain Scale: 0-10 Numeric Is Patient Pain Free? Yes WC - Nurse 1 - General Ulcer Measurement Start: 07/10/21 08:04 Freq: Status: Active Protocol: Activity Type Activity Date Activity User E-Sign Co-Sign Detail Recorded Client Recorded Date Recorded By Document 07/10/21 08:04 AK [id number] 07/10/21 08:06 AK 07/10/21 08:04 Wound Center Nurse 1 #1- L LATERAL ANKLE -Combined with other wound No -Current Size (cm) - Length 0.5 -Current Size (cm) - Width 0.5 -Current Size (cm) - Depth 0.2 -Total Square Cm 0.25 -Photo Taken No -Tunneling No -Undermining/Tunneling No -Circular Undermining No -Exudate Amt Medium -Exudate Type Serosanguineous -Wound Margin Distinct, Outline Attached -Granulation Amt Small (1-33%) -Granulation Quality N/A -Slough/Fibrin Yes -Necrosis Amt Small (1-33%) -Necrotic Tissue Type Adherent Slough -Structure Exposed N/A -Texture (Casi-wound Skin Appearance) Assessed, Scarring,Rash -Moisture (Casi-wound Skin Appearance) No Abnormality, Assessed -Color (Casi-wound Skin Appearance) No Abnormality, Assessed -Temperature (Casi-wound Skin No Abnormality Appearance) (Pt Warm) -Tenderness on Palpation (Casi-wound Yes Skin Appearance) -Ulcer Cleansing Rinsed/ Irrigated with Saline -Foul Odor after Cleansing No -Anesthetic Used 4% Lidocaine Solution Lower Limb Edema Present No WC - Nurse 2 - General Ulcer CM Notes Start: 07/10/21 08:04 Freq: Status: Active Protocol: Activity Type Activity Date Activity User E-Sign Co-Sign Detail Recorded Client Recorded Date Recorded By Document 07/10/21 08:10 MW [id number] 07/10/21 08:16 MW 07/10/21 08:10 Wound Center Nurse 2 #1- L LATERAL ANKLE -Time 08:15 -Correct Patient Yes -Correct Side, Site, Position Yes -Correct Procedure Yes -Procedure Performed Yes -Type of Procedure Debridement -Clinical Debridement Subcutaneous -Tissue Removed Subcutaneous -Post Debridement (cm) - Length 0.9 -Post Debridement (cm) - Width 0.3 -Post Debridement (cm) - Depth 0.3 -Total Square (Post) (cm) 0.27 -Area of Debridement (cm) - Length 0.9 -Area of Debridement (cm) - Width 0.3 -Total Square (Area) (cm) 0.27 -Tunneling No -Undermining/Tunneling No -Circular Undermining No -Wound/Ulcer Outcome Not Healed -Ulcer Cleansing Rinsed/ Irrigated with Saline -Foul Odor after Cleansing No -Bioengineered Tissue Yes -Type of Bioengineered Tissue Epifix 18mm Disc -Expiration Date 03/08/26 -Product Lot Number [id number] -Percent Used 100 -Lot number of Saline Used [id number] -Bleeding Controlled with Pressure -Offloading No -Treatment Response Procedure Tolerated Well -Debridement - Subq, 1st 20sq cm No -Apply Skin Sub - 1st 25 sq cm - Legs 1 -Epifix 18mm Disc 3 Pain Scale: 0-10 Numeric Is Patient Pain Free? Yes WC - Nurse 3 - General Ulcer D/C NN Start: 07/10/21 08:04 Freq: Status: Active Protocol: Activity Type Activity Date Activity User E-Sign Co-Sign Detail Recorded Client Recorded Date Recorded By Document 07/10/21 08:37 SD [id number] 07/10/21 08:38 LYNDSEY 07/10/21 08:37 Wound Care Nurse 3 #1- L LATERAL ANKLE -Primary Dressing Applied Aquacel Extra -Primary Dressing Covered/Secured with Dry Gauze, Secured with Tape -Aquacel Extra 1 Pain Scale: 0-10 Numeric Is Patient Pain Free? Yes WC - Visit Discharge Discharge Condition Stable Ambulatory Status Ambulatory Transportation Private Auto Medication Reconcilliation completed & Yes provided to patient/care provider Clinical Summary of Care Provided Yes Assessment/Plan Assessment/Plan (1) Asymptomatic ruptured varicose vein of left lower extremity: CODE(S): I83.92 - Asymptomatic varicose veins of left lower extremity (2) Venous insufficiency of left leg: CODE(S): I87.2 - Venous insufficiency (chronic) (peripheral) PLAN: DR Childers vascular surgeon appointment today after our appointment (3) Nonhealing ulcer of left lower extremity: CODE(S): L97.929 - Non-pressure chronic ulcer of unspecified part of left lower leg with unspecified severity QUALIFIERS: Non-pressure ulcer stage: with fat layer exposed Qualified Code(s): L97.922 - Non-pressure chronic ulcer of unspecified part of left lower leg with fat layer exposed PLAN: Epi fix #4 applied to base covered with wound veil and Steri-Strips adaptic genteel,Aquacel extra over top with gauze dressing Patient instructed not to get wet Continue antibiotic therapy Follow-up in 1 week (4) Peripheral vascular disease of lower extremity with ulceration: CODE(S): I73.9 - Peripheral vascular disease, unspecified; L97.909 - Non- pressure chronic ulcer of unspecified part of unspecified lower leg with uns pecified severity
[2021-07-18 08:07] VITALS: BP 127/58; PULSE 76; RESP 18; TEMP 36.5; BMI 25.5
--- NOTE | 2021-07-18 09:06 | PCM.WC.PN ---
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 He has been seen by his family doctor and has been placed on clindamycin no cultures were taken and he has been using Bactroban topically since January to keep it clean he said it did get some redness around the area and that frightened him. He is referred Here by his family doctor. Patient states 10 years ago was seen by Dr. 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 He was supposed to have surgery to remove it and they told him he had to have an EKG and he did not have time because of worse work schedule. 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 He has many varicosities and a ropey varicosities in the upper leg and fine broken varicosities in the lower leg. He also on the anterior white of his left leg has this discoloration and indentation almost looks like a scar but he states it is not. Progress of Wound: Courtesy Visit for Marycarmen Stanton NP. Has had 5 applications of Epifix so far. He also had a visit with Vascular surgery last week. some treatments planned. He denies increased drainage over the past week. Subjective Subjective No significant new concerns reported. Objective Data Objective Data Vital Signs: Vital Signs Temp Pulse Resp BP 97.7 F L 76 18 127/58 H 07/18/21 08:07 07/18/21 08:07 07/18/21 08:07 07/18/21 08:07 Weight: 168 lb Body Mass Index (BMI) 25.5 Charges/Coding Procedures Integumentary 150xxx-152xx: 34783 Skin sub graft trnk/arm/leg Physical Exam Const oriented x3 General Appearance: cooperative Exam Limitations: no limitations Resp normal respiratory effort Effort and Inspection: able to speak in complete sentences Auscultation: clear to auscultation bilaterally Extremity normal to inspection Skin Skin Narrative: Left lateral ankle venous insufficiency he has a large hole that is getting bigger clean some slough denies any pain at this time. Wounds: wounds noted Neuro oriented x3 Psych Appearance: grossly normal Speech: normal speech Thought Content: normal thought content Judgement: judgement good Debridement Note Debridement Note Wound debrided: Left Lower Extremity Type of Debridement: Excisional debridement Anesthesia Used: 4% Lidocaine Solution Depth: Down to and including healthy tissue and in the subcutaneous layer Percentage of wound debrided: 100 Instrument Used: 5mm curette Tissue Removed: Slough and devitalized tissue Severity: Fat Layer Exposed Amount of bleeding with debridement: Mild Bleeding Controlled with: Pressure Patient tolerated procedure: Patient tolerated procedure well Post-Debridement Measurements and Additional Note: Post-Debridement Measurements/Treatment - Nurse 1 - General Ulcer Assessment Start: 07/10/21 08:04 Freq: Status: Active Protocol: BANDAR Activity Type Activity Date Activity User E-Sign Co-Sign Detail Recorded Client Recorded Date Recorded By Document 07/10/21 08:04 AK [id number] 07/10/21 08:06 AK Document 07/18/21 08:07 LELAND [id number] 07/18/21 08:17 LELAND 07/10/21 07/18/21 08:04 08:07 - Today's Visit Information Type of service Follow-up Visit Follow-up Visit (Physician/TECHNICAL WRITER AND EDITOR (Physician/TECHNICAL WRITER AND EDITOR ) ) Arrival Mode Ambulatory Ambulatory Patient Identification Verified (Name & Yes Yes ) Patient Requires Transmission-Based No No Precautions Safety Precautions NA Height and Weight Body Mass Index (BMI) 25.5 25.5 BMI Classification Overweight Overweight Vital Signs Temperature (97.8 F-99.1 F) 96.9 F L 97.7 F L Temperature Source Temporal Temporal Pulse Rate (60-100) 81 76 Pulse Location Monitor Monitor Respiratory Rate (12-18) 18 Respiratory rate source Observation Blood Pressure (90/60-120/80) 126/64 H 127/58 H Blood Pressure Mean (mm Hg) 84 81 Source Monitor Monitor Position Sitting Blood Pressure Location Left Arm History Since Last Visit- (Skip if this is Patient's initial visit) Have you changed medications since your No No last visit? Any new allergies or adverse reactions No No Had a fall/change in ADL's that may No No increase risk of falls Signs or symptoms of abuse and/or No No neglect since last visit Have you been in the hospital since your No No last visit? Has dressing in place as prescribed Yes Yes Has compression in place as prescribed Yes Yes Has offloadiing in place as prescribed No N/A Experienced any changes in pain level or No No management Left Footwear Regular Shoe Regular Shoe Right Footwear Regular Shoe Regular Shoe Pain Scale: 0-10 Numeric Is Patient Pain Free? Yes Yes WC - Nurse 1 - General Ulcer Measurement Start: 07/10/21 08:04 Freq: Status: Active Protocol: Activity Type Activity Date Activity User E-Sign Co-Sign Detail Recorded Client Recorded Date Recorded By Document 07/10/21 08:04 AK [id number] 07/10/21 08:06 AK Document 07/18/21 08:07 JF [id number] 07/18/21 08:17 JF 07/10/21 07/18/21 08:04 08:07 Wound Center Nurse 1 #1- L LATERAL ANKLE -Combined with other wound No No -Current Size (cm) - Length 0.5 0.8 -Current Size (cm) - Width 0.5 0.4 -Current Size (cm) - Depth 0.2 0.3 -Total Square Cm 0.25 0.32 -Photo Taken No No -Epithelialization Small 1-33% -Tunneling No No -Undermining/Tunneling No No -Circular Undermining No No -Exudate Amt Medium Small -Exudate Type Serosanguineous Serosanguineous -Wound Margin Distinct, Flat & Intact Outline Attached -Granulation Amt Small (1-33%) Small (1-33%) -Granulation Quality N/A Pale -Slough/Fibrin Yes Yes -Necrosis Amt Small (1-33%) Large (67-100%) -Necrotic Tissue Type Adherent Slough Adherent Slough -Structure Exposed N/A N/A -Texture (Casi-wound Skin Appearance) Assessed, Assessed, Scarring,Rash Localized Edema -Moisture (Casi-wound Skin Appearance) No Abnormality, Assessed,Dry/ Assessed Scaly -Color (Casi-wound Skin Appearance) No Abnormality, Assessed, Assessed Hemosiderin Staining -Temperature (Casi-wound Skin No Abnormality No Abnormality Appearance) (Pt Warm) (Pt Warm) -Tenderness on Palpation (Casi-wound Yes Yes Skin Appearance) -Ulcer Cleansing Rinsed/ Wound Cleanser Irrigated with Saline -Foul Odor after Cleansing No No -Anesthetic Used 4% Lidocaine 5% Lidocaine Solution Gel Lower Limb Edema Present No Yes Left Calf (cm) 39.3 Left Ankle (cm) 23.0 WC - Nurse 2 - General Ulcer CM Notes Start: 07/10/21 08:04 Freq: Status: Active Protocol: Activity Type Activity Date Activity User E-Sign Co-Sign Detail Recorded Client Recorded Date Recorded By Document 07/10/21 08:10 MW [id number] 07/10/21 08:16 MW Document 07/18/21 08:26 MW [id number] 07/18/21 08:35 MW 07/10/21 07/18/21 08:10 08:26 Wound Center Nurse 2 #1- L LATERAL ANKLE -Time 08:15 08:26 -Correct Patient Yes Yes -Correct Side, Site, Position Yes Yes -Correct Procedure Yes Yes -Procedure Performed Yes Yes -Type of Procedure Debridement Debridement -Clinical Debridement Subcutaneous Subcutaneous -Tissue Removed Subcutaneous Subcutaneous -Post Debridement (cm) - Length 0.9 1.0 -Post Debridement (cm) - Width 0.3 0.6 -Post Debridement (cm) - Depth 0.3 0.4 -Total Square (Post) (cm) 0.27 0.60 -Area of Debridement (cm) - Length 0.9 1.0 -Area of Debridement (cm) - Width 0.3 0.6 -Total Square (Area) (cm) 0.27 0.60 -Tunneling No No -Undermining/Tunneling No No -Circular Undermining No No -Wound/Ulcer Outcome Not Healed Not Healed -Ulcer Cleansing Rinsed/ Rinsed/ Irrigated with Irrigated with Saline Saline -Foul Odor after Cleansing No No -Bioengineered Tissue Yes Yes -Type of Bioengineered Tissue Epifix 18mm Epifix 18mm Disc Disc -Expiration Date 03/08/26 04/08/26 -Product Lot Number [id number] -Percent Used 100 100 -Lot number of Saline Used [id number] -Bleeding Controlled with Pressure Pressure -Offloading No No -Treatment Response Procedure Procedure Tolerated Well Tolerated Well -Debridement - Subq, 1st 20sq cm No No -Apply Skin Sub - 1st 25 sq cm - Legs 1 1 -Epifix 18mm Disc 3 3 Pain Scale: 0-10 Numeric Is Patient Pain Free? Yes Yes WC - Nurse 3 - General Ulcer D/C NN Start: 07/10/21 08:04 Freq: Status: Active Protocol: Activity Type Activity Date Activity User E-Sign Co-Sign Detail Recorded Client Recorded Date Recorded By Document 07/10/21 08:37 AK [id number] 07/10/21 08:38 AK Document 07/18/21 08:42 RB [id number] 07/18/21 08:43 RB 07/10/21 07/18/21 08:37 08:42 Wound Care Nurse 3 #1- L LATERAL ANKLE -Primary Dressing Applied Aquacel Extra Aquacel Extra -Primary Dressing Covered/Secured with Dry Gauze, Dry Gauze, Secured with Secured with Tape Tape -Aquacel Extra 1 1 Treatment Response Procedure Tolerated Well Pain Scale: 0-10 Numeric Is Patient Pain Free? Yes Yes WC - Visit Discharge Discharge Condition Stable Stable Ambulatory Status Ambulatory Ambulatory Transportation Private Auto Private Auto Medication Reconcilliation completed & Yes No provided to patient/care provider Clinical Summary of Care Provided Yes Yes Assessment/Plan Assessment/Plan (1) Asymptomatic ruptured varicose vein of left lower extremity: CODE(S): I83.92 - Asymptomatic varicose veins of left lower extremity (2) Venous insufficiency of left leg: CODE(S): I87.2 - Venous insufficiency (chronic) (peripheral) (3) Nonhealing ulcer of left lower extremity: CODE(S): L97.929 - Non-pressure chronic ulcer of unspecified part of left lower leg with unspecified severity QUALIFIERS: Non-pressure ulcer stage: with fat layer exposed Qualified Code(s): L97.922 - Non-pressure chronic ulcer of unspecified part of left lower leg with fat layer exposed (4) Peripheral vascular disease of lower extremity with ulceration: CODE(S): I73.9 - Peripheral vascular disease, unspecified; L97.909 - Non-pressure chronic ulcer of unspecified part of unspecified lower leg with unspecified severity PLAN: Debridement done as documented above, procedure was well-tolerated. 6th application of Epifix done using 100% of product. Moistened with hydrogel, covered with Adaptic touch and secured with Steri-Strips. Aquacel and gauze over top to help with drainage. Continue compression. Continue follow-up with Dr. Childers. Increased protein intake. Elevate lower extremities when seated and in bed. His questions were answered and he was advised to call with any further questions or concerns. Follow-up in a week with Marycarmen Stanton NP. This note was generated with [employer] software. It may contain incorrect words, spelling, and punctuation that were not noted in checking the note before signing.
--- NOTE | 2021-07-24 08:56 | PCM.WC.PN ---
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 He has been seen by his family doctor and has been placed on clindamycin no cultures were taken and he has been using Bactroban topically since January to keep it clean he said it did get some redness around the area and that frightened him. He is referred Here by his family doctor. Patient states 10 years ago was seen by Dr. 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 He was supposed to have surgery to remove it and they told him he had to have an EKG and he did not have time because of worse work schedule. 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 He has many varicosities and a ropey varicosities in the upper leg and fine broken varicosities in the lower leg. He also on the anterior white of his left leg has this discoloration and indentation almost looks like a scar but he states it is not. Progress of Wound: Epi fix #6 applied today [place] last week and has scheduled for next week. Patient seen Dr. his dumont for August 05 next to the wound and it is complains of pain scabbed and irritated. to see if it is rubbing on his boot We will try to pad with a foam pad over top to give him some pain relief. The wound itself is smaller filling in. Subjective Subjective Patient has no concerns at this time except for that pain next to the wound Objective Data Objective Data The wound has bumps of new cell growth in the base. Measurements are smaller on the wound base. Scabbing and soreness next to the wound apparent. Some erythema there also. We'll continue with the epi fix and he has appointment next week with Dr. Childers for treatment. Vital Signs: Vital Signs Temp Pulse Resp BP 97.7 F L 76 18 127/58 H 07/18/21 08:07 07/18/21 08:07 07/18/21 08:07 07/18/21 08:07 Weight: 168 lb Body Mass Index (BMI) 25.5 Lab / Micro Data Attestation: I reviewed the patient's lab results. Physical Exam Const oriented x3 General Appearance: cooperative Exam Limitations: no limitations Resp normal respiratory effort Effort and Inspection: able to speak in complete sentences Auscultation: clear to auscultation bilaterally Extremity normal to inspection Skin Skin Narrative: Left lateral ankle venous insufficiency he has a large hole that is getting bigger clean some slough denies any pain at this time. Wounds: wounds noted Neuro oriented x3 Psych Appearance: grossly normal Speech: normal speech Thought Content: normal thought content Judgement: judgement good Debridement Note Debridement Note Wound debrided: Left lateral ankle Type of Debridement: Excisional debridement Anesthesia Used: 5% Lidocaine Gel Depth: Down to and including healthy tissue Percentage of wound debrided: 100 Instrument Used: 3mm curette Tissue Removed: Fibrin and devitalized tissue Severity: Fat Layer Exposed Amount of bleeding with debridement: None Bleeding Controlled with: Pressure Patient tolerated procedure: Patient tolerated procedure well Post-Debridement Measurements and Additional Note: Post-Debridement Measurements/Treatment - Nurse 1 - General Ulcer Assessment Start: 07/10/21 08:04 Freq: Status: Active Protocol: ROQUE.YI Activity Type Activity Date Activity User E-Sign Co-Sign Detail Recorded Client Recorded Date Recorded By Document 07/10/21 08:04 LYNDSEY [id number] 07/10/21 08:06 AK Document 07/18/21 08:07 LELAND [id number] 07/18/21 08:17 LELAND 07/10/21 07/18/21 08:04 08:07 - Today's Visit Information Type of service Follow-up Visit Follow-up Visit (Physician/CHANGE MANAGEMENT ADMINISTRATOR (Physician/CHANGE MANAGEMENT ADMINISTRATOR ) ) Arrival Mode Ambulatory Ambulatory Patient Identification Verified (Name & Yes Yes ) Patient Requires Transmission-Based No No Precautions Safety Precautions NA Height and Weight Body Mass Index (BMI) 25.5 25.5 BMI Classification Overweight Overweight Vital Signs Temperature (97.8 F-99.1 F) 96.9 F L 97.7 F L Temperature Source Temporal Temporal Pulse Rate (60-100) 81 76 Pulse Location Monitor Monitor Respiratory Rate (12-18) 18 Respiratory rate source Observation Blood Pressure (90/60-120/80) 126/64 H 127/58 H Blood Pressure Mean (mm Hg) 84 81 Source Monitor Monitor Position Sitting Blood Pressure Location Left Arm History Since Last Visit- (Skip if this is Patient's initial visit) Have you changed medications since your No No last visit? Any new allergies or adverse reactions No No Had a fall/change in ADL's that may No No increase risk of falls Signs or symptoms of abuse and/or No No neglect since last visit Have you been in the hospital since your No No last visit? Has dressing in place as prescribed Yes Yes Has compression in place as prescribed Yes Yes Has offloadiing in place as prescribed No N/A Experienced any changes in pain level or No No management Left Footwear Regular Shoe Regular Shoe Right Footwear Regular Shoe Regular Shoe Pain Scale: 0-10 Numeric Is Patient Pain Free? Yes Yes WC - Nurse 1 - General Ulcer Measurement Start: 07/10/21 08:04 Freq: Status: Active Protocol: Activity Type Activity Date Activity User E-Sign Co-Sign Detail Recorded Client Recorded Date Recorded By Document 07/10/21 08:04 LYNDSEY [id number] 07/10/21 08:06 AK Document 07/18/21 08:07 LELAND [id number] 07/18/21 08:17 LELAND 07/10/21 07/18/21 08:04 08:07 Wound Center Nurse 1 #1- L LATERAL ANKLE -Combined with other wound No No -Current Size (cm) - Length 0.5 0.8 -Current Size (cm) - Width 0.5 0.4 -Current Size (cm) - Depth 0.2 0.3 -Total Square Cm 0.25 0.32 -Photo Taken No No -Epithelialization Small 1-33% -Tunneling No No -Undermining/Tunneling No No -Circular Undermining No No -Exudate Amt Medium Small -Exudate Type Serosanguineous Serosanguineous -Wound Margin Distinct, Flat & Intact Outline Attached -Granulation Amt Small (1-33%) Small (1-33%) -Granulation Quality N/A Pale -Slough/Fibrin Yes Yes -Necrosis Amt Small (1-33%) Large (67-100%) -Necrotic Tissue Type Adherent Slough Adherent Slough -Structure Exposed N/A N/A -Texture (Casi-wound Skin Appearance) Assessed, Assessed, Scarring,Rash Localized Edema -Moisture (Casi-wound Skin Appearance) No Abnormality, Assessed,Dry/ Assessed Scaly -Color (Casi-wound Skin Appearance) No Abnormality, Assessed, Assessed Hemosiderin Staining -Temperature (Casi-wound Skin No Abnormality No Abnormality Appearance) (Pt Warm) (Pt Warm) -Tenderness on Palpation (Casi-wound Yes Yes Skin Appearance) -Ulcer Cleansing Rinsed/ Wound Cleanser Irrigated with Saline -Foul Odor after Cleansing No No -Anesthetic Used 4% Lidocaine 5% Lidocaine Solution Gel Lower Limb Edema Present No Yes Left Calf (cm) 39.3 Left Ankle (cm) 23.0 WC - Nurse 2 - General Ulcer CM Notes Start: 07/10/21 08:04 Freq: Status: Active Protocol: Activity Type Activity Date Activity User E-Sign Co-Sign Detail Recorded Client Recorded Date Recorded By Document 07/10/21 08:10 MW [id number] 07/10/21 08:16 MW Document 07/18/21 08:26 MW [id number] 07/18/21 08:35 MW 07/10/21 07/18/21 08:10 08:26 Wound Center Nurse 2 #1- L LATERAL ANKLE -Time 08:15 08:26 -Correct Patient Yes Yes -Correct Side, Site, Position Yes Yes -Correct Procedure Yes Yes -Procedure Performed Yes Yes -Type of Procedure Debridement Debridement -Clinical Debridement Subcutaneous Subcutaneous -Tissue Removed Subcutaneous Subcutaneous -Post Debridement (cm) - Length 0.9 1.0 -Post Debridement (cm) - Width 0.3 0.6 -Post Debridement (cm) - Depth 0.3 0.4 -Total Square (Post) (cm) 0.27 0.60 -Area of Debridement (cm) - Length 0.9 1.0 -Area of Debridement (cm) - Width 0.3 0.6 -Total Square (Area) (cm) 0.27 0.60 -Tunneling No No -Undermining/Tunneling No No -Circular Undermining No No -Wound/Ulcer Outcome Not Healed Not Healed -Ulcer Cleansing Rinsed/ Rinsed/ Irrigated with Irrigated with Saline Saline -Foul Odor after Cleansing No No -Bioengineered Tissue Yes Yes -Type of Bioengineered Tissue Epifix 18mm Epifix 18mm Disc Disc -Expiration Date 03/08/26 04/08/26 -Product Lot Number [id number] -Percent Used 100 100 -Lot number of Saline Used [id number] -Bleeding Controlled with Pressure Pressure -Offloading No No -Treatment Response Procedure Procedure Tolerated Well Tolerated Well -Debridement - Subq, 1st 20sq cm No No -Apply Skin Sub - 1st 25 sq cm - Legs 1 1 -Epifix 18mm Disc 3 3 Pain Scale: 0-10 Numeric Is Patient Pain Free? Yes Yes - Nurse 3 - General Ulcer D/C NN Start: 07/10/21 08:04 Freq: Status: Active Protocol: Activity Type Activity Date Activity User E-Sign Co-Sign Detail Recorded Client Recorded Date Recorded By Document 07/10/21 08:37 AK [id number] 07/10/21 08:38 AK Document 07/18/21 08:42 RB [id number] 07/18/21 08:43 RB Document 07/24/21 08:35 [facility] [id number] 07/24/21 08:37 [facility] 07/10/21 07/18/21 07/24/21 08:37 08:42 08:35 Wound Care Nurse 3 #1- L LATERAL ANKLE -Primary Dressing Applied Aquacel Extra Aquacel Extra Aquacel Extra -Other Dressing epifix -Primary Dressing Covered/Secured with Dry Gauze, Dry Gauze, Dry Gauze & Secured with Secured with Roll Gauze, Tape Tape Secured with Tape -Other Covering stasis pad between gauze layers -Aquacel Extra 1 1 1 Treatment Response Procedure Procedure Tolerated Well Tolerated Well Pain Scale: 0-10 Numeric Is Patient Pain Free? Yes Yes Yes - Visit Discharge Discharge Condition Stable Stable Stable Ambulatory Status Ambulatory Ambulatory Ambulatory Transportation Private Auto Private Auto Private Auto Medication Reconcilliation completed & Yes No provided to patient/care provider Clinical Summary of Care Provided Yes Yes Assessment/Plan Assessment/Plan (1) Asymptomatic ruptured varicose vein of left lower extremity: CODE(S): I83.92 - Asymptomatic varicose veins of left lower extremity (2) Venous insufficiency of left leg: CODE(S): I87.2 - Venous insufficiency (chronic) (peripheral) PLAN: DR Childers vascular surgeon appointment aug 05 for ablation (3) Nonhealing ulcer of left lower extremity: CODE(S): L97.929 - Non-pressure chronic ulcer of unspecified part of left lower leg with unspecified severity QUALIFIERS: Non-pressure ulcer stage: with fat layer exposed Qualified Code(s): L97.922 - Non-pressure chronic ulcer of unspecified part of left lower leg with fat layer exposed PLAN: Epi fix #6 applied to base covered with wound veil and Steri-Strips adaptic genteel,Aquacel extra over top with gauze dressing Patient instructed not to get wet Follow-up in 1 week (4) Peripheral vascular disease of lower extremity with ulceration: CODE(S): I73.9 - Peripheral vascular disease, unspecified; L97.909 - Non-pressure chronic ulcer of unspecified part of unspecified lower leg with unspecified severity
[2021-07-31 08:04] VITALS: BP 139/80; PULSE 77; RESP 16; TEMP 36.3; BMI 25.5
--- NOTE | 2021-07-31 09:05 | PN.PCM_ITS ---
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 He has been seen by his family doctor and has been placed on clindamycin no cultures were taken and he has been using Bactroban topically since January to keep it clean he said it did get some redness around the area and that frightened him. He is referred Here by his family doctor. Patient states 10 years ago was seen by Dr. 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 He was supposed to have surgery to remove it and they told him he had to have an EKG and he did not have time because of worse work schedule. 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 He has many varicosities and a ropey varicosities in the upper leg and fine broken varicosities in the lower leg. He also on the anterior white of his left leg has this discoloration and indentation almost looks like a scar but he states it is not. Progress of Wound: Patient states was doing surgery on a cow and got blood down in his boot and had to change the dressing on last Thursday. Complains of less pain it still there but now the wound is starting to elongate and the skin is cracking and superior area of the wound. He is to see Dr. Childers on Thursday for procedure. Depth is the same but it looks better Subjective Subjective Again patient states that he had to take the dressing off early because of blood from the cow that got into his boot soaked his dressing Objective Data Objective Data We have decided to hold on the epi fix this week go back to Promogran and apply Xeroform over the top to see if we can get his skin to stop cracking and look irritated. Vital Signs: Vital Signs Temp Pulse Resp BP 97.3 F L 77 16 139/80 H 07/31/21 08:04 07/31/21 08:04 07/31/21 08:04 07/31/21 08:04 Oxygen Delivery Method Room Air Weight: 168 lb Body Mass Index (BMI) 25.5 Lab / Micro Data Attestation: I reviewed the patient's lab results. Physical Exam Const oriented x3 General Appearance: cooperative Exam Limitations: no limitations Resp normal respiratory effort Effort and Inspection: able to speak in complete sentences Auscultation: clear to auscultation bilaterally Extremity normal to inspection Skin Skin Narrative: Left lateral ankle venous insufficiency he has a large hole that is getting bigger clean some slough denies any pain at this time. Wounds: wounds noted Neuro oriented x3 Psych Appearance: grossly normal Speech: normal speech Thought Content: normal thought content Judgement: judgement good Debridement Note Debridement Note Wound debrided: Left lateral ankle ulcer Type of Debridement: Excisional debridement Anesthesia Used: 5% Lidocaine Gel Depth: in the subcutaneous layer Percentage of wound debrided: 100 Instrument Used: 3mm curette Tissue Removed: Devitalized tissue and slough fibrin Severity: Limited To Skin Breakdown Amount of bleeding with debridement: None Bleeding Controlled with: Compression and gauze Patient tolerated procedure: Patient tolerated procedure well Post-Debridement Measurements and Additional Note: Post-Debridement Measurements/Treatment - Nurse 1 - General Ulcer Assessment Start: 07/10/21 08:04 Freq: Status: Active Protocol: ROQUE.YI Activity Type Activity Date Activity User E-Sign Co-Sign Detail Recorded Client Recorded Date Recorded By Document 07/10/21 08:04 [place] [id number] 07/10/21 08:06 [place] Document 07/18/21 08:07 [id number] 07/18/21 08:17 Document 07/31/21 08:04 [facility] [id number] 07/31/21 08:10 [facility] 07/10/21 07/18/21 07/31/21 08:04 08:07 08:04 - Today's Visit Information Type of service Follow-up Visit Follow-up Visit Follow-up Visit (Physician/BOX TENDER (Physician/BOX TENDER (Physician/BOX TENDER ) ) ) Arrival Mode Ambulatory Ambulatory Ambulatory Transfer Assistance None Patient Identification Verified (Name & Yes Yes Yes ) Patient Requires Transmission-Based No No No Precautions Safety Precautions NA Height and Weight Body Mass Index (BMI) 25.5 25.5 25.5 BMI Classification Overweight Overweight Overweight Vital Signs Temperature (97.8 F-99.1 F) 96.9 F L 97.7 F L 97.3 F L Temperature Source Temporal Temporal Temporal Pulse Rate (60-100) 81 76 77 Pulse Location Monitor Monitor Monitor Respiratory Rate (12-18) 18 16 Respiratory rate source Observation Observation Oxygen Delivery Method Room Air Blood Pressure (90/60-120/80) 126/64 H 127/58 H 139/80 H Blood Pressure Mean (mm Hg) 84 81 99 Source Monitor Monitor Monitor Position Sitting Sitting Blood Pressure Location Left Arm Left Arm History Since Last Visit- (Skip if this is Patient's initial visit) Have you changed medications since your No No No last visit? Any new allergies or adverse reactions No No No Had a fall/change in ADL's that may No No No increase risk of falls Signs or symptoms of abuse and/or No No No neglect since last visit Have you been in the hospital since your No No No last visit? Has dressing in place as prescribed Yes Yes Yes Has compression in place as prescribed Yes Yes No Has offloadiing in place as prescribed No N/A N/A Experienced any changes in pain level or No No No management Left Footwear Regular Shoe Regular Shoe Regular Shoe Right Footwear Regular Shoe Regular Shoe Regular Shoe Pain Scale: 0-10 Numeric Is Patient Pain Free? Yes Yes Yes WC - Nurse 1 - General Ulcer Measurement Start: 07/10/21 08:04 Freq: Status: Active Protocol: Activity Type Activity Date Activity User E-Sign Co-Sign Detail Recorded Client Recorded Date Recorded By Document 07/10/21 08:04 [place] [id number] 07/10/21 08:06 [place] Document 07/18/21 08:07 [id number] 07/18/21 08:17 Document 07/31/21 08:04 [facility] [id number] 07/31/21 08:10 [facility] 07/10/21 07/18/21 07/31/21 08:04 08:07 08:04 Wound Center Nurse 1 #1- L LATERAL ANKLE -Combined with other wound No No No -Current Size (cm) - Length 0.5 0.8 0.7 -Current Size (cm) - Width 0.5 0.4 0.5 -Current Size (cm) - Depth 0.2 0.3 0.4 -Total Square Cm 0.25 0.32 0.35 -Date of Last Picture (Recall this 07/31/21 field) -Photo Taken No No Yes -Epithelialization Small 1-33% None Present -Tunneling No No No -Undermining/Tunneling No No No -Circular Undermining No No No -Exudate Amt Medium Small Medium -Exudate Type Serosanguineous Serosanguineous Serosanguineous -Wound Margin Distinct, Flat & Intact Distinct, Outline Outline Attached Attached -Granulation Amt Small (1-33%) Small (1-33%) Small (1-33%) -Granulation Quality N/A Pale Red -Slough/Fibrin Yes Yes Yes -Necrosis Amt Small (1-33%) Large (67-100%) Large (67-100%) -Necrotic Tissue Type Adherent Slough Adherent Slough Adherent Slough -Structure Exposed N/A N/A -Texture (Casi-wound Skin Appearance) Assessed, Assessed, Assessed, Scarring,Rash Localized Edema Scarring -Moisture (Casi-wound Skin Appearance) No Abnormality, Assessed,Dry/ Assessed,Dry/ Assessed Scaly Scaly -Color (Casi-wound Skin Appearance) No Abnormality, Assessed, Assessed, Assessed Hemosiderin Erythema Staining -Temperature (Casi-wound Skin No Abnormality No Abnormality No Abnormality Appearance) (Pt Warm) (Pt Warm) (Pt Warm) -Tenderness on Palpation (Casi-wound Yes Yes No Skin Appearance) -Ulcer Cleansing Rinsed/ Wound Cleanser Soap and Water Irrigated with Saline -Foul Odor after Cleansing No No No -Anesthetic Used 4% Lidocaine 5% Lidocaine 5% Lidocaine Solution Gel Gel Lower Limb Edema Present No Yes Yes Left Calf (cm) 39.3 38.6 Left Ankle (cm) 23.0 23 WC - Nurse 2 - General Ulcer CM Notes Start: 07/10/21 08:04 Freq: Status: Active Protocol: Activity Type Activity Date Activity User E-Sign Co-Sign Detail Recorded Client Recorded Date Recorded By Document 07/10/21 08:10 MW [id number] 07/10/21 08:16 MW Document 07/18/21 08:26 MW [id number] 07/18/21 08:35 MW Document 07/24/21 08:00 MW [id number] 07/24/21 12:31 MW Document 07/31/21 08:15 MW [id number] 07/31/21 08:22 MW 07/10/21 07/18/21 07/24/21 08:10 08:26 08:00 Wound Center Nurse 2 #1- L LATERAL ANKLE -Time 08:15 08:26 08:00 -Correct Patient Yes Yes Yes -Correct Side, Site, Position Yes Yes Yes -Correct Procedure Yes Yes Yes -Procedure Performed Yes Yes Yes -Type of Procedure Debridement Debridement Debridement -Clinical Debridement Subcutaneous Subcutaneous Subcutaneous -Tissue Removed Subcutaneous Subcutaneous Subcutaneous -Post Debridement (cm) - Length 0.9 1.0 0.5 -Post Debridement (cm) - Width 0.3 0.6 0.4 -Post Debridement (cm) - Depth 0.3 0.4 0.3 -Total Square (Post) (cm) 0.27 0.60 0.20 -Area of Debridement (cm) - Length 0.9 1.0 0.5 -Area of Debridement (cm) - Width 0.3 0.6 0.4 -Total Square (Area) (cm) 0.27 0.60 0.20 -Tunneling No No No -Undermining/Tunneling No No No -Circular Undermining No No No -Wound/Ulcer Outcome Not Healed Not Healed Not Healed -Ulcer Cleansing Rinsed/ Rinsed/ Rinsed/ Irrigated with Irrigated with Irrigated with Saline Saline Saline -Foul Odor after Cleansing No No No -Bioengineered Tissue Yes Yes Yes -Type of Bioengineered Tissue Epifix 18mm Epifix 18mm Epifix 18mm Disc Disc Disc -Expiration Date 03/08/26 04/08/26 04/08/26 -Product Lot Number [id number] -Percent Used 100 100 100 -Lot number of Saline Used [id number] -Bleeding Controlled with Pressure Pressure Pressure -Offloading No No No -Treatment Response Procedure Procedure Procedure Tolerated Well Tolerated Well Tolerated Well -Debridement - Subq, 1st 20sq cm No No No -Apply Skin Sub - 1st 25 sq cm - Legs 1 1 1 -Epifix 18mm Disc 3 3 3 Pain Scale: 0-10 Numeric Is Patient Pain Free? Yes Yes Yes 07/31/21 08:15 Wound Center Nurse 2 #1- L LATERAL ANKLE -Time 08:18 -Correct Patient Yes -Correct Side, Site, Position Yes -Correct Procedure Yes -Procedure Performed Yes -Type of Procedure Debridement -Clinical Debridement Subcutaneous -Tissue Removed Subcutaneous -Post Debridement (cm) - Length 1.0 -Post Debridement (cm) - Width 0.4 -Post Debridement (cm) - Depth 0.3 -Total Square (Post) (cm) 0.40 -Area of Debridement (cm) - Length 1.0 -Area of Debridement (cm) - Width 0.4 -Total Square (Area) (cm) 0.40 -Tunneling No -Undermining/Tunneling No -Circular Undermining No -Wound/Ulcer Outcome Not Healed -Ulcer Cleansing Rinsed/ Irrigated with Saline -Foul Odor after Cleansing No -Bioengineered Tissue No -Type of Bioengineered Tissue -Expiration Date -Product Lot Number -Percent Used -Lot number of Saline Used -Bleeding Controlled with Pressure -Offloading No -Treatment Response Procedure Tolerated Well -Debridement - Subq, 1st 20sq cm Yes -Apply Skin Sub - 1st 25 sq cm - Legs -Epifix 18mm Disc Pain Scale: 0-10 Numeric Is Patient Pain Free? Yes - Nurse 3 - General Ulcer D/C NN Start: 07/10/21 08:04 Freq: Status: Active Protocol: Activity Type Activity Date Activity User E-Sign Co-Sign Detail Recorded Client Recorded Date Recorded By Document 07/10/21 08:37 [place] [id number] 07/10/21 08:38 AK Document 07/18/21 08:42 RB [id number] 07/18/21 08:43 RB Document 07/24/21 08:35 [facility] [id number] 07/24/21 08:37 [facility] Document 07/31/21 08:28 [place] [id number] 07/31/21 08:30 AK 07/10/21 07/18/21 07/24/21 08:37 08:42 08:35 Wound Care Nurse 3 #1- L LATERAL ANKLE -Ulcer Cleansing -Primary Dressing Applied Aquacel Extra Aquacel Extra Aquacel Extra -Other Dressing epifix -Primary Dressing Covered/Secured with Dry Gauze, Dry Gauze, Dry Gauze & Secured with Secured with Roll Gauze, Tape Tape Secured with Tape -Other Covering stasis pad between gauze layers -Aquacel Extra 1 1 1 -Promogran Treatment Response Procedure Procedure Tolerated Well Tolerated Well Pain Scale: 0-10 Numeric Is Patient Pain Free? Yes Yes Yes WC - Visit Discharge Discharge Condition Stable Stable Stable Ambulatory Status Ambulatory Ambulatory Ambulatory Transportation Private Auto Private Auto Private Auto Medication Reconcilliation completed & Yes No provided to patient/care provider Clinical Summary of Care Provided Yes Yes 07/31/21 08:28 Wound Care Nurse 3 #1- L LATERAL ANKLE -Ulcer Cleansing Soap and Water -Primary Dressing Applied Promogran -Other Dressing xeroform -Primary Dressing Covered/Secured with Dry Gauze, Secured with Tape -Other Covering -Aquacel Extra -Promogran 1 Treatment Response Pain Scale: 0-10 Numeric Is Patient Pain Free? Yes WC - Visit Discharge Discharge Condition Stable Ambulatory Status Ambulatory Transportation Private Auto Medication Reconcilliation completed & Yes provided to patient/care provider Clinical Summary of Care Provided Yes Assessment/Plan Assessment/Plan (1) Asymptomatic ruptured varicose vein of left lower extremity: CODE(S): I83.92 - Asymptomatic varicose veins of left lower extremity (2) Venous insufficiency of left leg: CODE(S): I87.2 - Venous insufficiency (chronic) (peripheral) PLAN: DR Childers vascular surgeon appointment aug 05 for ablation (3) Nonhealing ulcer of left lower extremity: CODE(S): L97.929 - Non-pressure chronic ulcer of unspecified part of left lower leg with unspecified severity QUALIFIERS: Non-pressure ulcer stage: with fat layer exposed Qualified Code(s): L97.922 - Non-pressure chronic ulcer of unspecified part of left lower leg with fat layer exposed PLAN: Hold on epi fix. Apply Promogran to wound base cover with Xeroform and gauze dressing This will be a daily dressing change Follow-up in 1 week (4) Peripheral vascular disease of lower extremity with ulceration: CODE(S): I73.9 - Peripheral vascular disease, unspecified; L97.909 - Non- pressure chronic ulcer of unspecified part of unspecified lower leg with unspecified severity
== END 2021-08-05 23:59 | disposition home or self-care (01) ==
LOC: WC 08:00
PROVIDERS: PCP Family Medicine; Referring Provider Nurse Practitioner; Visit Provider Nurse Practitioner
DX: I87.2 Venous insufficiency (chronic) (peripheral) (principal); L97.321 Non-pressure chronic ulcer of left ankle limited to breakdown of skin; I73.9 Peripheral vascular disease, unspecified; I83.92 Asymptomatic varicose veins of left lower extremity
CPT/HCPCS: 11042; 15271; Q4186

== ENCOUNTER 2021-08-15 07:58 | Outpatient (CLI) | payer MEDICARE, SELFPAY ==
--- NOTE | 2021-08-15 08:01 | VDLE_ITS ---
Reason For Study: Varicose veins, swelling, pain Procedure LEFT This is a venous duplex using B-mode, color CFV is compressible, spontaneous, phasic, flow and spectral Doppler. competent, and demonstrates normal Exam performed in department. augmentation. The exam was diagnostic. FV is compressible, spontaneous, phasic, competent and demonstrates normal augmentation. POP V is compressible, spontaneous, phasic, competent and demonstrates normal augmentation. T/P Trunk is compressible. PTV is compressible. LT PerV is compressible. GSV is occluded from the knee to groin S/P ablation. Varicose veins below the knee are dilated and noncompressible. SFJ is INCOMPETENT and measures .98 cm. SSV proximal calf is competent and measures .27 x .27 cm. VL/Venous Duplex US, Unilateral Interpretation Summary Left lower extremity no evidence of DVT. Left GSV and varicose vein branches ar e occluded. Ordering Physician: Stuart Childers Performed By: Hitesh Jerome, RVT
== END 2021-08-15 23:59 | disposition home or self-care (01) ==
LOC: CVS 07:58
PROVIDERS: PCP Family Medicine; Referring Provider Surgery Vascular Surgery; Visit Provider Surgery Vascular Surgery
DX: I83.891 Varicose veins of right lower extremity with other complications (principal); I83.892 Varicose veins of left lower extremity with other complications; I83.893 Varicose veins of bilateral lower extremities with other complications; M79.89 Other specified soft tissue disorders; M79.606 Pain in leg, unspecified
CPT/HCPCS: 93971

== ENCOUNTER 2021-08-21 08:00 | Outpatient (RCR) | payer MEDICARE, SELFPAY ==
[2021-08-06 00:19] VITALS: BP 139/80; PULSE 77; RESP 16; TEMP 36.3; BMI 25.5
[2021-08-07 08:05] VITALS: BP 152/85; PULSE 71; RESP 16; TEMP 35.8; BMI 25.5
--- NOTE | 2021-08-07 11:02 | PCM.WC.PN ---
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 He has been seen by his family doctor and has been placed on clindamycin no cultures were taken and he has been using Bactroban topically since January to keep it clean he said it did get some redness around the area and that frightened him. He is referred Here by his family doctor. Patient states 10 years ago was seen by Dr. 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 He was supposed to have surgery to remove it and they told him he had to have an EKG and he did not have time because of worse work schedule. 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 He has many varicosities and a ropey varicosities in the upper leg and fine broken varicosities in the lower leg. He also on the anterior white of his left leg has this discoloration and indentation almost looks like a scar but he states it is not. Progress of Wound: Finally the wound is starting to fill in using Promogran and the skin surrounding the area is looking less angry with Xeroform. Patient did see Dr. Childers this last week and had a procedure done looking better. Has another scheduled appointment in September. Subjective Subjective Patient states pain is almost gone now he does not have any pain in the wound Objective Data Objective Data No sign of infection the area looks really good is starting to fill and still has a divot. We are going to continue using Promogran and the Xeroform Vital Signs: Vital Signs Temp Pulse Resp BP 96.5 F L 71 16 152/85 H 08/07/21 08:05 08/07/21 08:05 08/07/21 08:05 08/07/21 08:05 Oxygen Delivery Method Room Air Weight: 168 lb Body Mass Index (BMI) 25.5 Lab / Micro Data Attestation: I reviewed the patient's lab results. Physical Exam Const oriented x3 General Appearance: cooperative Exam Limitations: no limitations Resp normal respiratory effort Effort and Inspection: able to speak in complete sentences Auscultation: clear to auscultation bilaterally Extremity normal to inspection Skin Skin Narrative: Left lateral ankle venous insufficiency he has a large hole that is getting bigger clean some slough denies any pain at this time. Wounds: wounds noted Neuro oriented x3 Psych Appearance: grossly normal Speech: normal speech Thought Content: normal thought content Judgement: judgement good Debridement Note Debridement Note Wound debrided: Left lateral ankle peripheral vascular disease Type of Debridement: Excisional debridement Anesthesia Used: 5% Lidocaine Gel Depth: Down to and including healthy tissue Percentage of wound debrided: 100 Instrument Used: 3mm curette Tissue Removed: Fibrin and some slough Severity: Fat Layer Exposed Amount of bleeding with debridement: None Bleeding Controlled with: Compression and gauze Patient tolerated procedure: Patient tolerated procedure well Post-Debridement Measurements and Additional Note: Post-Debridement Measurements/Treatment - Nurse 1 - General Ulcer Assessment Start: 08/07/21 08:04 Freq: Status: Active Protocol: ROQUE.YI Activity Type Activity Date Activity User E-Sign Co-Sign Detail Recorded Client Recorded Date Recorded By Document 08/07/21 08:05 [facility] [id number] 08/07/21 08:13 [facility] 08/07/21 08:05 - Today's Visit Information Type of service Follow-up Visit (Physician/ELECTRICAL PARTS RECONDITIONER ) Arrival Mode Ambulatory Transfer Assistance None Patient Identification Verified (Name & Yes ) Patient Requires Transmission-Based No Precautions Height and Weight Body Mass Index (BMI) 25.5 BMI Classification Overweight Vital Signs Temperature (97.8 F-99.1 F) 96.5 F L Temperature Source Temporal Pulse Rate (60-100) 71 Pulse Location Monitor Respiratory Rate (12-18) 16 Respiratory rate source Observation Oxygen Delivery Method Room Air Blood Pressure (90/60-120/80) 152/85 H Blood Pressure Mean (mm Hg) 107 Source Monitor Position Sitting Blood Pressure Location Left Arm History Since Last Visit- (Skip if this is Patient's initial visit) Have you changed medications since your No last visit? Any new allergies or adverse reactions No Had a fall/change in ADL's that may No increase risk of falls Signs or symptoms of abuse and/or No neglect since last visit Have you been in the hospital since your No last visit? Has dressing in place as prescribed Yes Has compression in place as prescribed Yes Has offloadiing in place as prescribed N/A Left Footwear Regular Shoe Right Footwear Regular Shoe Pain Scale: 0-10 Numeric Is Patient Pain Free? Yes WC - Nurse 1 - General Ulcer Measurement Start: 08/07/21 08:04 Freq: Status: Active Protocol: Activity Type Activity Date Activity User E-Sign Co-Sign Detail Recorded Client Recorded Date Recorded By Document 08/07/21 08:05 [facility] [id number] 08/07/21 08:13 BM 08/07/21 08:05 Wound Center Nurse 1 #1- L LATERAL ANKLE -Combined with other wound No -Current Size (cm) - Length 0.4 -Current Size (cm) - Width 0.1 -Current Size (cm) - Depth 0.4 -Total Square Cm 0.04 -Date of Last Picture (Recall this 08/07/21 field) -Photo Taken Yes -Epithelialization Medium 34-66% -Tunneling No -Undermining/Tunneling No -Circular Undermining No -Exudate Amt Small -Exudate Type Serous -Wound Margin Distinct, Outline Attached -Granulation Amt Small (1-33%) -Granulation Quality Red -Slough/Fibrin Yes -Necrosis Amt Large (67-100%) -Necrotic Tissue Type Adherent Slough -Texture (Casi-wound Skin Appearance) Assessed, Excoriation, Scarring -Moisture (Casi-wound Skin Appearance) Assessed,Dry/ Scaly -Color (Casi-wound Skin Appearance) Assessed, Hemosiderin Staining -Temperature (Casi-wound Skin No Abnormality Appearance) (Pt Warm) -Tenderness on Palpation (Casi-wound No Skin Appearance) -Ulcer Cleansing Rinsed/ Irrigated with Saline -Foul Odor after Cleansing No -Anesthetic Used 5% Lidocaine Gel Lower Limb Edema Present Yes Left Calf (cm) 37.1 Left Ankle (cm) 22.5 WC - Nurse 2 - General Ulcer CM Notes Start: 08/07/21 08:04 Freq: Status: Active Protocol: Activity Type Activity Date Activity User E-Sign Co-Sign Detail Recorded Client Recorded Date Recorded By Document 08/07/21 08:19 MW [id number] 08/07/21 08:24 MW 08/07/21 08:19 Wound Center Nurse 2 #1- L LATERAL ANKLE -Time 08:19 -Correct Patient Yes -Correct Side, Site, Position Yes -Correct Procedure Yes -Procedure Performed Yes -Type of Procedure Debridement -Clinical Debridement Subcutaneous -Tissue Removed Subcutaneous -Post Debridement (cm) - Length 0.3 -Post Debridement (cm) - Width 0.3 -Post Debridement (cm) - Depth 0.3 -Total Square (Post) (cm) 0.09 -Area of Debridement (cm) - Length 0.3 -Area of Debridement (cm) - Width 0.3 -Total Square (Area) (cm) 0.09 -Tunneling No -Undermining/Tunneling No -Circular Undermining No -Wound/Ulcer Outcome Not Healed -Ulcer Cleansing Rinsed/ Irrigated with Saline -Foul Odor after Cleansing No -Bioengineered Tissue No -Bleeding Controlled with Pressure -Offloading No -Treatment Response Procedure Tolerated Well -Debridement - Subq, 1st 20sq cm Yes Pain Scale: 0-10 Numeric Is Patient Pain Free? Yes - Nurse 3 - General Ulcer D/C NN Start: 08/07/21 08:04 Freq: Status: Active Protocol: Activity Type Activity Date Activity User E-Sign Co-Sign Detail Recorded Client Recorded Date Recorded By Document 08/07/21 08:28 [facility] [id number] 08/07/21 08:29 [facility] 08/07/21 08:28 Wound Care Nurse 3 #1- L LATERAL ANKLE -Primary Dressing Applied NonAdherent Contact Layer, Promogran -Other Dressing drsg per ak senior ux developer -Primary Dressing Covered/Secured with Dry Gauze, Secured with Tape -Promogran 1 Treatment Response Procedure Tolerated Well Pain Scale: 0-10 Numeric Is Patient Pain Free? Yes - Visit Discharge Discharge Condition Stable Ambulatory Status Ambulatory Transportation Private Auto Assessment/Plan Assessment/Plan (1) Asymptomatic ruptured varicose vein of left lower extremity: CODE(S): I83.92 - Asymptomatic varicose veins of left lower extremity (2) Venous insufficiency of left leg: CODE(S): I87.2 - Venous insufficiency (chronic) (peripheral) PLAN: DR Childers vascular surgeon appointment September (3) Nonhealing ulcer of left lower extremity: CODE(S): L97.929 - Non-pressure chronic ulcer of unspecified part of left lower leg with unspecified severity QUALIFIERS: Non-pressure ulcer stage: with fat layer exposed Qualified Code(s): L97.922 - Non-pressure chronic ulcer of unspecified part of left lower leg with fat layer exposed PLAN: Hold on epi fix. Continue to apply Promogran to wound base cover with Xeroform and gauze dressing This will be a daily dressing change Follow-up in 1 week (4) Peripheral vascular disease of lower extremity with ulceration: CODE(S): I73.9 - Peripheral vascular disease, unspecified; L97.909 - Non-pressure chronic ulcer of unspecified part of unspecified lower leg with unspecified severity
[2021-08-14 08:04] VITALS: BP 137/76; PULSE 74; RESP 16; TEMP 35.7; BMI 25.5
--- NOTE | 2021-08-14 08:49 | PCM.WC.PN ---
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 He has been seen by his family doctor and has been placed on clindamycin no cultures were taken and he has been using Bactroban topically since January to keep it clean he said it did get some redness around the area and that frightened him. He is referred Here by his family doctor. Patient states 10 years ago was seen by Dr. 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 He was supposed to have surgery to remove it and they told him he had to have an EKG and he did not have time because of worse work schedule. 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 He has many varicosities and a ropey varicosities in the upper leg and fine broken varicosities in the lower leg. He also on the anterior white of his left leg has this discoloration and indentation almost looks like a scar but he states it is not. Progress of Wound: Finally the wound is starting to fill in using Promogran and the skin surrounding the area is looking less angry with Xeroform. Patient has another procedure scheduled for September with Dr. Childers much improvement with procedures on his legs. Subjective Subjective Patient states less pain in his leg feels a lot better Objective Data Objective Data Discoloration from the procedure up in the upper thigh looks fine no hardness skin is supple just some ecchymotic area patient was reassured. The wound itself looks more shallow and is starting to fill in nicely with the Promogran and Xeroform dressing hopefully will be healed in the next couple weeks Vital Signs: Vital Signs Temp Pulse Resp BP 96.2 F L 74 16 137/76 H 08/14/21 08:04 08/14/21 08:04 08/14/21 08:04 08/14/21 08:04 Oxygen Delivery Method Room Air Weight: 168 lb Body Mass Index (BMI) 25.5 Lab / Micro Data Attestation: I reviewed the patient's lab results. Physical Exam Const oriented x3 General Appearance: cooperative Exam Limitations: no limitations Resp normal respiratory effort Effort and Inspection: able to speak in complete sentences Auscultation: clear to auscultation bilaterally Extremity normal to inspection Skin Skin Narrative: Left lateral ankle venous insufficiency he has a large hole that is getting bigger clean some slough denies any pain at this time. Wounds: wounds noted Neuro oriented x3 Psych Appearance: grossly normal Speech: normal speech Thought Content: normal thought content Judgement: judgement good Debridement Note Debridement Note Wound debrided: Left lateral ankle ulcer from his peripheral vascular disease Type of Debridement: Excisional debridement Anesthesia Used: 5% Lidocaine Gel Depth: in the subcutaneous layer Percentage of wound debrided: 100 Instrument Used: 3mm curette Tissue Removed: Fibrin Severity: Limited To Skin Breakdown Amount of bleeding with debridement: Mild Bleeding Controlled with: Compression and gauze Patient tolerated procedure: Patient tolerated procedure well Post-Debridement Measurements and Additional Note: Post-Debridement Measurements/Treatment - Nurse 1 - General Ulcer Assessment Start: 08/07/21 08:04 Freq: Status: Active Protocol: BANDAR Activity Type Activity Date Activity User E-Sign Co-Sign Detail Recorded Client Recorded Date Recorded By Document 08/07/21 08:05 [facility] [id number] 08/07/21 08:13 [facility] Document 08/14/21 08:04 [facility] [id number] 08/14/21 08:07 [facility] 08/07/21 08/14/21 08:05 08:04 - Today's Visit Information Type of service Follow-up Visit Follow-up Visit (Physician/HELPER COORDINATOR (Physician/HELPER COORDINATOR ) ) Arrival Mode Ambulatory Ambulatory Transfer Assistance None None Patient Identification Verified (Name & Yes Yes ) Patient Requires Transmission-Based No No Precautions Height and Weight Body Mass Index (BMI) 25.5 25.5 BMI Classification Overweight Overweight Vital Signs Temperature (97.8 F-99.1 F) 96.5 F L 96.2 F L Temperature Source Temporal Temporal Pulse Rate (60-100) 71 74 Pulse Location Monitor Monitor Respiratory Rate (12-18) 16 16 Respiratory rate source Observation Observation Oxygen Delivery Method Room Air Room Air Blood Pressure (90/60-120/80) 152/85 H 137/76 H Blood Pressure Mean (mm Hg) 107 96 Source Monitor Monitor Position Sitting Sitting Blood Pressure Location Left Arm Left Arm History Since Last Visit- (Skip if this is Patient's initial visit) Have you changed medications since your No No last visit? Any new allergies or adverse reactions No No Had a fall/change in ADL's that may No No increase risk of falls Signs or symptoms of abuse and/or No No neglect since last visit Have you been in the hospital since your No No last visit? Has dressing in place as prescribed Yes Yes Has compression in place as prescribed Yes Yes Has offloadiing in place as prescribed N/A Experienced any changes in pain level or No management Left Footwear Regular Shoe Regular Shoe Right Footwear Regular Shoe Regular Shoe Pain Scale: 0-10 Numeric Is Patient Pain Free? Yes Yes WC - Nurse 1 - General Ulcer Measurement Start: 08/07/21 08:04 Freq: Status: Active Protocol: Activity Type Activity Date Activity User E-Sign Co-Sign Detail Recorded Client Recorded Date Recorded By Document 08/07/21 08:05 [facility] [id number] 08/07/21 08:13 [facility] Document 08/14/21 08:04 [facility] [id number] 08/14/21 08:07 [facility] 08/07/21 08/14/21 08:05 08:04 Wound Center Nurse 1 #1- L LATERAL ANKLE -Combined with other wound No No -Current Size (cm) - Length 0.4 0.6 -Current Size (cm) - Width 0.1 0.3 -Current Size (cm) - Depth 0.4 0.3 -Total Square Cm 0.04 0.18 -Date of Last Picture (Recall this 08/07/21 08/14/21 field) -Photo Taken Yes Yes -Epithelialization Medium 34-66% None Present -Tunneling No No -Undermining/Tunneling No No -Circular Undermining No No -Exudate Amt Small Medium -Exudate Type Serous Serosanguineous -Wound Margin Distinct, Distinct, Outline Outline Attached Attached -Granulation Amt Small (1-33%) Small (1-33%) -Granulation Quality Red Red -Slough/Fibrin Yes Yes -Necrosis Amt Large (67-100%) Large (67-100%) -Necrotic Tissue Type Adherent Slough Adherent Slough -Texture (Casi-wound Skin Appearance) Assessed, Assessed, Excoriation, Scarring Scarring -Moisture (Casi-wound Skin Appearance) Assessed,Dry/ Assessed,Dry/ Scaly Scaly -Color (Casi-wound Skin Appearance) Assessed, Assessed, Hemosiderin Erythema Staining -Temperature (Casi-wound Skin No Abnormality No Abnormality Appearance) (Pt Warm) (Pt Warm) -Tenderness on Palpation (Casi-wound No No Skin Appearance) -Ulcer Cleansing Rinsed/ Rinsed/ Irrigated with Irrigated with Saline Saline -Foul Odor after Cleansing No No -Anesthetic Used 5% Lidocaine 5% Lidocaine Gel Gel Lower Limb Edema Present Yes Yes Left Calf (cm) 37.1 36.5 Left Ankle (cm) 22.5 22 WC - Nurse 2 - General Ulcer CM Notes Start: 08/07/21 08:04 Freq: Status: Active Protocol: Activity Type Activity Date Activity User E-Sign Co-Sign Detail Recorded Client Recorded Date Recorded By Document 08/07/21 08:19 MW [id number] 08/07/21 08:24 MW Document 08/14/21 08:17 MW [id number] 08/14/21 08:18 MW 08/07/21 08/14/21 08:19 08:17 Wound Center Nurse 2 #1- L LATERAL ANKLE -Time 08:19 08:17 -Correct Patient Yes Yes -Correct Side, Site, Position Yes Yes -Correct Procedure Yes Yes -Procedure Performed Yes Yes -Type of Procedure Debridement Debridement -Clinical Debridement Subcutaneous Subcutaneous -Tissue Removed Subcutaneous Subcutaneous -Post Debridement (cm) - Length 0.3 0.4 -Post Debridement (cm) - Width 0.3 0.3 -Post Debridement (cm) - Depth 0.3 0.2 -Total Square (Post) (cm) 0.09 0.12 -Area of Debridement (cm) - Length 0.3 0.4 -Area of Debridement (cm) - Width 0.3 0.3 -Total Square (Area) (cm) 0.09 0.12 -Tunneling No No -Undermining/Tunneling No No -Circular Undermining No No -Wound/Ulcer Outcome Not Healed Not Healed -Ulcer Cleansing Rinsed/ Rinsed/ Irrigated with Irrigated with Saline Saline -Foul Odor after Cleansing No No -Bioengineered Tissue No No -Bleeding Controlled with Pressure Pressure -Offloading No No -Treatment Response Procedure Procedure Tolerated Well Tolerated Well -Debridement - Subq, 1st 20sq cm Yes Yes Pain Scale: 0-10 Numeric Is Patient Pain Free? Yes Yes - Nurse 3 - General Ulcer D/C NN Start: 08/07/21 08:04 Freq: Status: Active Protocol: Activity Type Activity Date Activity User E-Sign Co-Sign Detail Recorded Client Recorded Date Recorded By Document 08/07/21 08:28 [facility] [id number] 08/07/21 08:29 [facility] Document 08/14/21 08:23 [facility] [id number] 08/14/21 08:24 [facility] 08/07/21 08/14/21 08:28 08:23 Wound Care Nurse 3 #1- L LATERAL ANKLE -Ulcer Cleansing Rinsed/ Irrigated with Saline -Foul Odor after Cleansing No -Primary Dressing Applied NonAdherent NonAdherent Contact Layer, Contact Layer, Promogran Promogran -Other Dressing drsg per [place] yard supervisor cotton gin -Primary Dressing Covered/Secured with Dry Gauze, Dry Gauze, Secured with Secured with Tape Tape -Other Covering drsg per [place] yard supervisor cotton gin -Promogran 1 1 Left -Other pt applies own thigh high compression Treatment Response Procedure Procedure Tolerated Well Tolerated Well Pain Scale: 0-10 Numeric Is Patient Pain Free? Yes Yes WC - Visit Discharge Discharge Condition Stable Stable Ambulatory Status Ambulatory Ambulatory Transportation Private Auto Private Auto Assessment/Plan Assessment/Plan (1) Asymptomatic ruptured varicose vein of left lower extremity: CODE(S): I83.92 - Asymptomatic varicose veins of left lower extremity (2) Venous insufficiency of left leg: CODE(S): I87.2 - Venous insufficiency (chronic) (peripheral) PLAN: DR Childers vascular surgeon appointment September (3) Nonhealing ulcer of left lower extremity: CODE(S): L97.929 - Non-pressure chronic ulcer of unspecified part of left lower leg with unspecified severity QUALIFIERS: Non-pressure ulcer stage: with fat layer exposed Qualified Code(s): L97.922 - Non-pressure chronic ulcer of unspecified part of left lower leg with fat layer exposed PLAN: Hold on epi fix. Continue to apply Promogran to wound base cover with Xeroform and gauze dressing This will be a daily dressing change Follow-up in 1 week (4) Peripheral vascular disease of lower extremity with ulceration: CODE(S): I73.9 - Peripheral vascular disease, unspecified; L97.908 - Non-pressure chronic ulcer of unspecified part of unspecified lower leg with unspecified severity
[2021-08-21 08:06] VITALS: BP 137/86; PULSE 85; RESP 16; TEMP 36.3; BMI 25.5
--- NOTE | 2021-08-21 10:01 | PCM.WC.PN ---
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 He has been seen by his family doctor and has been placed on clindamycin no cultures were taken and he has been using Bactroban topically since January to keep it clean he said it did get some redness around the area and that frightened him. He is referred Here by his family doctor. Patient states 10 years ago was seen by Dr. 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 He was supposed to have surgery to remove it and they told him he had to have an EKG and he did not have time because of worse work schedule. 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 He has many varicosities and a ropey varicosities in the upper leg and fine broken varicosities in the lower leg. He also on the anterior white of his left leg has this discoloration and indentation almost looks like a scar but he states it is not. Progress of Wound: Wound is filled in nicely and has resolved patient will be discharged from the wound center Still has [facility] appointments in September for finishing up some ablation issues Subjective Subjective Patient is very pleased with results and has no pain in his left lateral foot Objective Data Objective Data No sign of infection wound is resolved patient will be following up with Dr. Childers Vital Signs: Vital Signs Temp Pulse Resp BP 97.4 F L 85 16 137/86 H 08/21/21 08:06 08/21/21 08:06 08/21/21 08:06 08/21/21 08:06 Oxygen Delivery Method Room Air Weight: 168 lb Body Mass Index (BMI) 25.5 Physical Exam Const oriented x3 General Appearance: cooperative Exam Limitations: no limitations Resp normal respiratory effort Effort and Inspection: able to speak in complete sentences Auscultation: clear to auscultation bilaterally Extremity normal to inspection Skin Skin Narrative: Left lateral ankle venous insufficiency he has a large hole that is getting bigger clean some slough denies any pain at this time. Wounds: wounds noted Neuro oriented x3 Psych Appearance: grossly normal Speech: normal speech Thought Content: normal thought content Judgement: judgement good Debridement Note Debridement Note No debridement was completed: No debridement was completed today Post-Debridement Measurements and Additional Note: Post-Debridement Measurements/Treatment - Nurse 1 - General Ulcer Assessment Start: 08/07/21 08:04 Freq: Status: Active Protocol: ROQUE.LOWGERALDT Activity Type Activity Date Activity User E-Sign Co-Sign Detail Recorded Client Recorded Date Recorded By Document 08/07/21 08:05 [facility] [id number] 08/07/21 08:13 BM Document 08/14/21 08:04 BM [id number] 08/14/21 08:07 BM Document 08/21/21 08:06 AK [id number] 08/21/21 08:10 AK 08/07/21 08/14/21 08/21/21 08:05 08:04 08:06 - Today's Visit Information Type of service Follow-up Visit Follow-up Visit Follow-up Visit (Physician/FIBERGLASS INSULATION INSTALLER (Physician/FIBERGLASS INSULATION INSTALLER (Physician/FIBERGLASS INSULATION INSTALLER ) ) ) Arrival Mode Ambulatory Ambulatory Ambulatory Transfer Assistance None None None Patient Identification Verified (Name & Yes Yes Yes ) Patient Requires Transmission-Based No No No Precautions Height and Weight Body Mass Index (BMI) 25.5 25.5 25.5 BMI Classification Overweight Overweight Overweight Vital Signs Temperature (97.8 F-99.1 F) 96.5 F L 96.2 F L 97.4 F L Temperature Source Temporal Temporal Temporal Pulse Rate (60-100) 71 74 85 Pulse Location Monitor Monitor Monitor Respiratory Rate (12-18) 16 16 16 Respiratory rate source Observation Observation Observation Oxygen Delivery Method Room Air Room Air Room Air Blood Pressure (90/60-120/80) 152/85 H 137/76 H 137/86 H Blood Pressure Mean (mm Hg) 107 96 103 Source Monitor Monitor Monitor Position Sitting Sitting Sitting Blood Pressure Location Left Arm Left Arm Left Arm History Since Last Visit- (Skip if this is Patient's initial visit) Have you changed medications since your No No No last visit? Any new allergies or adverse reactions No No No Had a fall/change in ADL's that may No No No increase risk of falls Signs or symptoms of abuse and/or No No No neglect since last visit Have you been in the hospital since your No No No last visit? Has dressing in place as prescribed Yes Yes Yes Has compression in place as prescribed Yes Yes Yes Has offloadiing in place as prescribed N/A N/A Experienced any changes in pain level or No No management Left Footwear Regular Shoe Regular Shoe Regular Shoe Right Footwear Regular Shoe Regular Shoe Regular Shoe Pain Scale: 0-10 Numeric Is Patient Pain Free? Yes Yes Yes WC - Nurse 1 - General Ulcer Measurement Start: 08/07/21 08:04 Freq: Status: Active Protocol: Activity Type Activity Date Activity User E-Sign Co-Sign Detail Recorded Client Recorded Date Recorded By Document 08/07/21 08:05 [facility] [id number] 08/07/21 08:13 BM Document 08/14/21 08:04 BM [id number] 08/14/21 08:07 BM Document 08/21/21 08:06 [facility] [id number] 08/21/21 08:10 AK 08/07/21 08/14/21 08/21/21 08:05 08:04 08:06 Wound Center Nurse 1 #1- L LATERAL ANKLE -Combined with other wound No No No -Current Size (cm) - Length 0.4 0.6 0.1 -Current Size (cm) - Width 0.1 0.3 0.1 -Current Size (cm) - Depth 0.4 0.3 0.1 -Total Square Cm 0.04 0.18 0.01 -Date of Last Picture (Recall this 08/07/21 08/14/21 08/21/21 field) -Photo Taken Yes Yes Yes -Epithelialization Medium 34-66% None Present Large 67-100% -Tunneling No No -Undermining/Tunneling No No -Circular Undermining No No -Exudate Amt Small Medium -Exudate Type Serous Serosanguineous -Wound Margin Distinct, Distinct, Outline Outline Attached Attached -Granulation Amt Small (1-33%) Small (1-33%) -Granulation Quality Red Red -Slough/Fibrin Yes Yes -Necrosis Amt Large (67-100%) Large (67-100%) -Necrotic Tissue Type Adherent Slough Adherent Slough -Texture (Casi-wound Skin Appearance) Assessed, Assessed, Assessed, Excoriation, Scarring Scarring Scarring -Moisture (Casi-wound Skin Appearance) Assessed,Dry/ Assessed,Dry/ Scaly Scaly -Color (Casi-wound Skin Appearance) Assessed, Assessed, Assessed Hemosiderin Erythema Staining -Temperature (Casi-wound Skin No Abnormality No Abnormality No Abnormality Appearance) (Pt Warm) (Pt Warm) (Pt Warm) -Tenderness on Palpation (Casi-wound No No No Skin Appearance) -Ulcer Cleansing Rinsed/ Rinsed/ Rinsed/ Irrigated with Irrigated with Irrigated with Saline Saline Saline -Foul Odor after Cleansing No No No -Anesthetic Used 5% Lidocaine 5% Lidocaine 5% Lidocaine Gel Gel Gel Lower Limb Edema Present Yes Yes Yes Left Calf (cm) 37.1 36.5 36.2 Left Ankle (cm) 22.5 22 21 WC - Nurse 2 - General Ulcer CM Notes Start: 08/07/21 08:04 Freq: Status: Active Protocol: Activity Type Activity Date Activity User E-Sign Co-Sign Detail Recorded Client Recorded Date Recorded By Document 08/07/21 08:19 MW [id number] 08/07/21 08:24 MW Document 08/14/21 08:17 MW [id number] 08/14/21 08:18 MW Document 08/21/21 08:21 MW [id number] 08/21/21 08:22 MW 08/07/21 08/14/21 08/21/21 08:19 08:17 08:21 Wound Center Nurse 2 #1- L LATERAL ANKLE -Time 08:19 08:17 08:21 -Correct Patient Yes Yes Yes -Correct Side, Site, Position Yes Yes Yes -Correct Procedure Yes Yes Yes -Procedure Performed Yes Yes No -Type of Procedure Debridement Debridement -Clinical Debridement Subcutaneous Subcutaneous -Tissue Removed Subcutaneous Subcutaneous -Post Debridement (cm) - Length 0.3 0.4 0 -Post Debridement (cm) - Width 0.3 0.3 0 -Post Debridement (cm) - Depth 0.3 0.2 0 -Total Square (Post) (cm) 0.09 0.12 0 -Area of Debridement (cm) - Length 0.3 0.4 -Area of Debridement (cm) - Width 0.3 0.3 -Total Square (Area) (cm) 0.09 0.12 -Tunneling No No No -Undermining/Tunneling No No No -Circular Undermining No No No -Wound/Ulcer Outcome Not Healed Not Healed Healed- Epithelialized -Ulcer Cleansing Rinsed/ Rinsed/ Irrigated with Irrigated with Saline Saline -Foul Odor after Cleansing No No -Bioengineered Tissue No No -Bleeding Controlled with Pressure Pressure -Offloading No No -Treatment Response Procedure Procedure Tolerated Well Tolerated Well -Debridement - Subq, 1st 20sq cm Yes Yes Pain Scale: 0-10 Numeric Is Patient Pain Free? Yes Yes Yes - Nurse 3 - General Ulcer D/C NN Start: 08/07/21 08:04 Freq: Status: Active Protocol: Activity Type Activity Date Activity User E-Sign Co-Sign Detail Recorded Client Recorded Date Recorded By Document 08/07/21 08:28 [facility] [id number] 08/07/21 08:29 [facility] Document 08/14/21 08:23 [facility] [id number] 08/14/21 08:24 [facility] 08/07/21 08/14/21 08:28 08:23 Wound Care Nurse 3 #1- L LATERAL ANKLE -Ulcer Cleansing Rinsed/ Irrigated with Saline -Foul Odor after Cleansing No -Primary Dressing Applied NonAdherent NonAdherent Contact Layer, Contact Layer, Promogran Promogran -Other Dressing drsg per [place] field underwriter -Primary Dressing Covered/Secured with Dry Gauze, Dry Gauze, Secured with Secured with Tape Tape -Other Covering drsg per [place] field underwriter -Promogran 1 1 Left -Other pt applies own thigh high compression Treatment Response Procedure Procedure Tolerated Well Tolerated Well Pain Scale: 0-10 Numeric Is Patient Pain Free? Yes Yes - Visit Discharge Discharge Condition Stable Stable Ambulatory Status Ambulatory Ambulatory Transportation Private Auto Private Auto Assessment/Plan Assessment/Plan (1) Asymptomatic ruptured varicose vein of left lower extremity: CODE(S): I83.92 - Asymptomatic varicose veins of left lower extremity (2) Venous insufficiency of left leg: CODE(S): I87.2 - Venous insufficiency (chronic) (peripheral) PLAN: DR Childers vascular surgeon appointment September (3) Nonhealing ulcer of left lower extremity: CODE(S): L97.929 - Non-pressure chronic ulcer of unspecified part of left lower leg with unspecified severity QUALIFIERS: Non-pressure ulcer stage: with fat layer exposed Qualified Code(s): L97.922 - Non-pressure chronic ulcer of unspecified part of left lower leg with fat layer exposed PLAN: Wound is resolved patient will be discharged from the wound center follow-up as needed (4) Peripheral vascular disease of lower extremity with ulceration: CODE(S): I73.9 - Peripheral vascular disease, unspecified; L97.909 - Non-pressure chronic ulcer of unspecified part of unspecified lower leg with unspecified severity
== END 2021-08-21 14:12 | disposition home or self-care (01) ==
LOC: WC 08:00
PROVIDERS: PCP Family Medicine; Referring Provider Nurse Practitioner; Visit Provider Nurse Practitioner
DX: I87.2 Venous insufficiency (chronic) (peripheral) (principal); L97.922 Non-pressure chronic ulcer of unspecified part of left lower leg with fat layer exposed; I73.9 Peripheral vascular disease, unspecified; I83.92 Asymptomatic varicose veins of left lower extremity
CPT/HCPCS: 11042; 99213; G0463

== ENCOUNTER → 2021-10-03 | Outpatient (CLI) | payer MEDICARE, SELFPAY ==
--- NOTE | 2021-10-03 08:07 | VDLE_ITS ---
Reason For Study: swelling, pain Procedure LEFT This is a venous duplex using B-mode, color GSV is normal. flow and spectral Doppler. CFV is compressible, spontaneous, phasic, Exam performed in department. competent, and demonstrates normal The exam was abbreviated due to the COVID 19 augmentation. protocol. FV is compressible, spontaneous, phasic, The exam was diagnostic. competent and demonstrates normal A preliminary report was called and/or faxed augmentation. to aCra at Dr. Childers's office. POP V is compressible, spontaneous, phasic, competent and demonstrates normal augmentation. T/P Trunk is compressible. LT PerV is compressible. PTV at the ankle are dilated and noncompressible. GSV is occluded throughout S/P Varithena injection. Varicose veins are dilated and noncompressible. VL/Venous Duplex US, Unilateral Interpretation Summary Left lower extremity no evidence of DVT noted. Greater saphenous veins and vari cose vein branches successfully ablated. Ordering Physician: Stuart Childers Performed By: Hitesh Jerome RVT
== END | disposition home or self-care (01) ==
LOC: CVS 08:05
PROVIDERS: PCP Family Medicine; Referring Provider Surgery Vascular Surgery; Visit Provider Surgery Vascular Surgery
DX: I83.893 Varicose veins of bilateral lower extremities with other complications (principal); M79.89 Other specified soft tissue disorders; M79.606 Pain in leg, unspecified
CPT/HCPCS: 93971

== ENCOUNTER → 2021-11-27 | Outpatient (CLI) | payer MEDICARE, SELFPAY ==
--- NOTE | 2021-11-27 07:57 | VDLE_ITS ---
Reason For Study: Pain RIGHT LEFT CFV is compressible, spontaneous, phasic, CFV is compressible, spontaneous, phasic, competent and demonstrates normal competent, and demonstrates normal augmentation. augmentation. Procedure FV is compressible, spontaneous, phasic, This is a venous duplex using B-mode, color competent and demonstrates normal flow and spectral Doppler. augmentation. Exam performed in department. POP V is compressible, spontaneous, phasic, A preliminary report was called and/or faxed competent and demonstrates normal to Dr. Childers. augmentation. T/P Trunk is compressible. LT PerV is compressible. Lt PTV is dilated and noncompressible (no change from previous 10/03/21) Lt GastrocV is partially compressible with bright intraluminal echoes consistent with chronic DVT Lt GSV is occluded throughout s/p Varithena injection Varicose veins are dilated and noncompressible. VL/Venous Duplex US, Unilateral Interpretation Summary Left lower extremity with chronic DVT noted in the gastroc and posterior tibial vein. Left greater saphenous and varicose vein branches remain occluded. Ordering Physician: Stuart Childers Referring Physician: Dilip Muhammad Performed By: Lila Arroyo, CONOR, RVT
--- NOTE | 2021-11-27 07:59 | CDU_ITS ---
Reason For Study: Syncope Rt. Velocities/BP Lt. Velocities/BP Prox CCA 86/10 cm/sec. Prox CCA 99/25 cm/sec. Mid CCA 104/28 cm/sec. Mid CCA 94/24 cm/sec. Dist CCA 97/26 cm/sec. Dist CCA 74/23 cm/sec. Prox ICA 108/23 cm/sec. Prox ICA 85/27 cm/sec. Mid ICA 69/23 cm/sec. Mid ICA 72/29 cm/sec. Dist ICA 91/36 cm/sec. Dist ICA 76/32 cm/sec. Rt. ICA/CCA = 1.0. Lt. ICA/CCA = 0.9. Prox ECA 125/19 cm/sec. Prox ECA 105/15 cm/sec. Rt. Vert. 63/15 cm/sec. Lt. Vert. 59/19 cm/sec. Right Extracranial There is homogeneous, smooth atherosclerotic plaque noted in the right common carotid artery. Mobile plaque noted Rt CCA distal. There is intimal thickening but no significant atherosclerotic plaque noted in the right internal carotid artery. There is no significant atherosclerotic plaque noted in the right external carotid artery. Antegrade flow is noted in the right vertebral artery. Left Extracranial There is heterogeneous, smooth atherosclerotic plaque noted in the left common carotid artery. There is heterogeneous, irregular atherosclerotic plaque noted in the left internal carotid artery. There is intimal thickening but no significant atherosclerotic plaque noted in the left external carotid artery. Antegrade flow is noted in the left vertebral artery. Procedure Carotid Duplex [id number]. This is a Carotid Duplex examination using B-mode, color flow and specral Doppler. Exam performed in department. VL/Carotid Duplex Ultrasound Interpretation Summary Mild (<50%) stenosis right extracranial internal carotid. Mild (<50%) stenosis left extracranial internal carotid. Flow within the vertebral arteries is antegrade bilaterally. Ordering Physician: Dilip Muhammad Referring Physician: Dilip Muhammad Performed By: Lila Arroyo RDCS, RVT
== END | disposition home or self-care (01) ==
PROVIDERS: PCP Family Medicine; Referring Provider Family Medicine; Visit Provider Family Medicine
DX: I82.90 Acute embolism and thrombosis of unspecified vein (principal); I83.893 Varicose veins of bilateral lower extremities with other complications; M79.89 Other specified soft tissue disorders; M79.606 Pain in leg, unspecified; R55 Syncope and collapse
CPT/HCPCS: 93880; 93971